=== PATIENT | male | born 1955 | race Caucasian/White ===

== ENCOUNTER → 2021-01-12 13:44 | Outpatient (BNVA) | payer MEDICARE, OTHER, SELFPAY | PROVIDERS: PCP Nurse Practitioner Family; Visit Provider Surgery | DX: Z20.822 Contact with and (suspected) exposure to COVID-19 (principal) | CPT/HCPCS: 87635 ==

== ENCOUNTER → 2021-01-17 11:04 | Outpatient (BNVA) | payer MEDICARE, OTHER, SELFPAY | PROVIDERS: PCP Nurse Practitioner Family; Visit Provider Surgery | DX: Z20.822 Contact with and (suspected) exposure to COVID-19 (principal) | CPT/HCPCS: 87635 ==

== ENCOUNTER 2021-01-19 07:13 | Day surgery (SDC) | payer MEDICARE, OTHER, SELFPAY ==
[2021-01-18 11:48] VITALS: BMI 32.8
[2021-01-19] VITALS (16 sets, daily range): BP systolic 145–200; BP diastolic 84–120; PULSE 62–90; RESP 11–20; TEMP 36.4–36.7; O2SAT 93–99
[2021-01-19] MEDS: sodium chloride 0.9% 1,000 ML 30 ML IV (07:40)
--- NOTE | 2021-01-19 07:56 | NM_ITS ---
WS: [id number] NUCLEAR MEDICINE SENTINEL LYMPH NODE IMAGING HISTORY: Lymph node evaluation for melanoma along the RIGHT axillary line. COMPARISON: None available. TECHNIQUE: The patient was injected with 1.1 mCi of Technetium 99 ultra filtered sulfur colloid. Inje ction is intradermal along the RIGHT axillary line. Four aliquots are used. At approximately 45 minutes the sentinel lymph node is identified towards the RIGHT axilla. [place] lymph node is localized and the skin is marked with a permanent marker. Lymph node is localized in th e anterior and sagittal plane. NM/NM sentinel [place] inject [id number] IMPRESSION: [place] lymph node identified towards the RIGHT axilla.
--- NOTE | 2021-01-19 08:42 | PC.NURSE ---
1.1 mCi Tc99m Filtered Sulfur Colloid Injected Right Auxillary/back lesion at [address] Velasquez. Imaging to follow.
--- NOTE | 2021-01-19 10:15 | ANES.PREANE2 ---
Pre-Anesthetic Assessment Pre-Anesthetic Assessment: Height/Weight: Height 1.8 m Weight 106.594 kg Temp Pulse Resp BP Pulse Ox 98.1 F 90 18 168/87 97 01/19/21 07:30 01/19/21 07:30 01/19/21 07:30 01/19/21 07:30 01/19/21 07:30 Preop Diagnosis: Melanoma Proposed Procedure: Operation Date: 01/19/21 12:00 Proposed Procedures p wide local incision right mid back and left mid back [id number](Not Applicable) - Lucas García MD s Sentinal Lymph Node Biopsy(Not Applicable) - Lucas García MD Familial anesthetic complications: None Was Beta Flako taken within 24 hours: N/A Was Clonidine taken within 24 hours: N/A Last intake: Intake Last Liquid Date 01/08/21 Last Liquid Time 22:00 Last Solid Date 01/18/21 Last Solid Time 20:00 Social: Social History: Alcohol Packs per day: 10-12 beers daily Exam: Pre-Anes Outpt Exam: alert, oriented x 3, clear to auscultation bilaterally and regular rate & rhythm Airway: Cervical ROM: WNL MP: 4 Dentition: Other (missing) Additional comments: full burgos Anesthetic Plan: ASA status: 1 Anesthesia: General and MAC Risk of > 500 ml blood loss (7ml/kg in children): No PFSH Anesthesia PFSH: Medical History Malignant melanoma No pertinent past medical history Surgical History History of arthroscopic knee surgery History of colonoscopy with polypectomy History of tonsillectomy Social History History of recent travel: No Data Anesthesia Cardiac Studies: No Data to Display
--- NOTE | 2021-01-19 12:10 | W.PM.OPSUD ---
Surgery/Procedure H&P Update DATE OF PROCEDURE: January 19, 2021 DATE H&P PERFORMED: 01/09/21 H&P UPDATE INFORMATION: I have reviewed H&P completed within last 30 days, I have examined patient prior to procedure and No changes to prior documentation PREOP DIAGNOSIS: Melanoma PLANNED PROCEDURE: Operation Date: 01/19/21 12:00 Proposed Procedures p wide local incision right mid back and left mid back [id number](Not Applicable) - Lucas García MD s Sentinal Lymph Node Biopsy(Not Applicable) - Lucas García MD
[2021-01-19] MEDS: lidocaine 1% INJ 20 mL INJECTION (13:12)
[2021-01-19] MEDS: isosulfan blue 10 mg/mL SDV 5mL SUBCUT (13:16)
--- NOTE | 2021-01-19 14:27 | PM.OP ---
Operative Report Date of procedure: January 19, 2021 Pre-op Diagnosis: 1. Malignant melanoma superficial spreading Breslow depth 1.8 mm right mid back with positive deep and lateral margin 2. Malignant melanoma superficial spreading Breslow depth 0.5 mm left mid back Post-op diagnosis: same Procedure Done: 1. Wide local excision of malignant melanoma site left mid back 2. Intermediate closure of wound measuring 7 x 3 cm 3. Wide local excision of malignant melanoma right mid back 4. Intermediate closure of wound measuring 10 x 4 cm 5. Injection of 2.5 cc of 1% Lymphazurin 6. Right axillary sentinel lymph node biopsy Specimens removed/disposition: 1. Malignant melanoma site left mid back, short stitch, superior, long stitch lateral 2. Malignant melanoma site right mid back, short stitch superior, long stitch lateral 3. Right axillary sentinel lymph node biopsy Surgeon: Lucas García Anesthesia: General Condition: stable Disposition: PACU Procedure: The patient was taken to the operating room and intubated under general anesthesia after IV antibiotic had been administered and placed in a prone position. The back was prepped and draped in a sterile manner. A transverse elliptical incision was made using a 15 blade around the surgical site on the left mid back with 1.5 cm margin since B[place]low depth of the malignant melanoma was 0.5 mm. The subcutaneous tissue was divided using electrocautery down to the muscular fascia and the specimen was excised completely. A short stitch was placed superiorly and a long stitch was placed laterally using a 2-0 silk suture. The wound was irrigated with saline, hemostasis ensured with electrocautery. The wound measured 7 x 3 cm. Using electrocautery superior and inferior subcutaneous flaps were raised and the subcutaneous tissues were approximated using running 3-0 Vicryl suture in layers and the skin was closed using running subcuticular 4-0 Monocryl suture and Dermabond. 0.5% Marcaine was infiltrated around the incision. A transverse elliptical incision was made using a 15 blade around the surgical site on the right mid back with 2 cm margin since B[place]low depth of the malignant melanoma was 1.8 mm. The subcutaneous tissue was divided using electrocautery down to the muscular fascia and the specimen was excised completely. A short stitch was placed superiorly and a long stitch was placed laterally using a 2-0 silk suture. The wound was irrigated with saline, hemostasis ensured with electrocautery. The wound measured 10 x 4 cm. Using electrocautery superior and inferior subcutaneous flaps were raised and the subcutaneous tissues were approximated using running 3-0 Vicryl suture in layers and the skin was closed using running subcuticular 4-0 Monocryl suture and Dermabond. 0.5% Marcaine was infiltrated around the incision. The patient was then placed in a supine position. A technetium sulfur colloid had been injected previously by the radiologist in the periareolar area. 2.5 mL of 1% Lymphazurin was injected near the site of the previously excised melanoma. The area was massaged for 5 minutes and a 2 cm incision was made in the left axilla at the edge of the hairline. The subcutaneous tissue and clavipectoral fascia was divided with electrocautery and gentle dissection revealed lymphatics with stained lymph nodes. Using electrocautery the lymph nodes which were identified with the gamma probe were dissected free. Examination of the axilla did not reveal any other radioactive lymph nodes. The clavipectoral and subcutaneous tissue was approximated using running 3-0 Vicryl suture and skin was closed using running subcuticular 4-0 Monocryl suture and Dermabond. 0.5% Marcaine was infiltrated around the incision The patient was extubated and transferred to recovery room in stable condition.
[2021-01-19] MEDS: HYDROmorphone 1 mg/mL INJ 1 mL 0.5 MG IVP (14:30)
[2021-01-19] MEDS: HYDROcodone-acetaminophen 5-325 mg Tablet 1 TAB PO (15:49)
== END 2021-01-19 17:40 | disposition home or self-care (01) ==
PROVIDERS: PCP Nurse Practitioner Family; Visit Provider Surgery
PROC: (CPT 11606; principal; 2021-01-19 12:00)
PROC: (CPT 11606; 2021-01-19 12:00)
DX: C43.59 Malignant melanoma of other part of trunk (principal)
CPT/HCPCS: 11606; 12035; 38525; 38792; 88304; 88305; A9541; J0330; J0690; J1100; J1170; J2250; J2370; J2405; J3010; J3490; J7030; Q9968

== ENCOUNTER 2021-03-06 11:57 | Outpatient (CLI) | payer MEDICARE, OTHER, SELFPAY ==
--- NOTE | 2021-03-07 09:24 | ONC CON_ITS ---
Dr. John New Patient Note Patient: Krishna Guevara Unit #: [id number]: 1955 Dicatated By: Sandy John M.D.Date of Visit: Mar 06, 2021 Onc MED New Patient/Consult Referring Physician: Edgar Melo A.N.P. History of Present Illness: Mr. Krishna Guevara, is a 65-year-old gentleman with history of melanoma involving right upper back, initially underwent laser treatment by PMD in first week of November 2020, at that time biopsy was also obtained which came back melanoma and patient was referred to Dr. Ledesma, dermatology as per patient on January 02, 2021 he underwent left upper back shave biopsy which showed patchy lichenoid infiltrated with associated pigment incontinence. And skin biopsy left mid back, shave biopsy shows malignant melanoma, superficial spreading type, invasive into and focally expanding the papillary dermis, arising in association with an intradermal melanocytic nevus depth of invasion 0.5 mm no surface ulceration, T1 a, NX MX, subsequently patient was referred to surgery Dr. García for evaluation of right upper back lesion and his impression was skip lesion as there was a nodule next to the previously shaved right back melanoma lesion, patient underwent excisional biopsy and sentinel lymph node biopsy on January 19, 2021 which showed nodule of necrotic tumor and melanophages in the deep dermis and subcutis, 3.6 mm in greatest dimension. Discontinuous with prior biopsy site, favor necrotic microsatellite. No additional residual melanoma identified. Final pathology stage pT2b, pN1c, (satellite lesion), 7 benign lymph nodes from right axilla sentinel were negative for metastatic disease. Patient denies any history of skin cancer, denies any family history of melanoma denies any headaches blurred vision double he denies any jaundice denies any new bony pains denies any weight loss, denies any fever or chills, Past Medical History: Mr. Guevara's medical history consists of onychomycosis. Past Surgical History: Mr. Guevara's surgical/procedural history consists of arthroscopic knee surgery, colonoscopy, and tonsillectomy. Medications: Terbinafine HCl 1 Tablet (of 250 mg) Oral daily Allergies: No Known Allergies. Social History: Mr. Guevara is single. Mr. Guevara has never smoked. He has no history of drinking. Family History: There is no documented family history. Review Of Symptoms: Review of Systems is not available for this patient. Vital Signs: Performed on Mar 06, 2021 15:06: 0, 0, 0.00 (LOW), sq.m, 98 %, 89 /min, 18 /min, 157/95 mm(hg) (HIGH), 98.6 F, and 244 lbs (HIGH). Performance Status: 0 - Fully active, able to carry on all predisease activities without restrictions. (ECOG) Physical Examination: ENMT - No mouth sores, no thrush, no jaundice, Respiratory - Lungs are clear to auscultation, Cardiovascular - Regular rate and rhythm of heart, Abdomen - Soft, bowel sounds present, Extremities - No visible edema, well-healed surgical scar in bilateral mid back and right axilla from recent surgery for melanoma. Lab/Imaging: Most recent lab results are not available for this patient. Impression: pT2b, N1c, MX, cutaneous melanoma involving right mid back status post excisional biopsy with clear surgical margin and sentinel lymph node/right axillary lymphadenectomy done on January 19, 2021 As per pathology, it was a nodule of necrotic tumor with melanophages in the deep dermis and subcutis, 3.6 mm in greatest dimension, discontinuous with prior biopsy site which confirmed melanoma too, favor necrotic microsatellite, right axillary sentinel lymph nodes were removed and all 7 benign lymph nodes, negative for malignancy. Final pathology was T2b, maximum tumor thickness 1.8 mm, ulceration present, microsatellite present, necrotic, tumor infiltrating lymphocytes present, no lymphovascular invasion seen. Left mid back shows maximum tumor thickness 0.5 mm, no ulceration clear surgical margins T1 a NX Plan: Discussed with patient regarding his disease status and treatment options, clinically, patient has stage IIIb, T2b, N1C, (satellite lesion), MX status post sentinel lymph node biopsy which shows no involvement, based on NCCN guidelines, patient would be a candidate for adjuvant therapy with immunotherapy with checkpoint inhibitor or dabrafenib based regimen if his tumor shows BRAF mutation, discussed with pathology and molecular profiling including BRAF mutation testing has been requested, we will review that and make further recommendations based on molecular profile. Patient return to clinic in 3 weeks for further discussion regarding adjuvant therapy. Signed By: Sandy John M.D. <<Signature on File>>
== END 2021-03-06 11:58 | disposition home or self-care (01) ==
PROVIDERS: PCP Nurse Practitioner Family; Visit Provider Internal Medicine Hematology & Oncology
DX: C43.59 Malignant melanoma of other part of trunk (principal)
CPT/HCPCS: 81210; 99205

== ENCOUNTER 2021-06-08 08:59 | Outpatient (CLI) | payer MEDICARE, OTHER, SELFPAY ==
--- NOTE | 2021-06-08 11:57 | ONC FU_ITS ---
Dr. John follow up note Patient: Krishna Guevara Unit #: [id number]: 1955 Dicatated By: Sandy John M.D.Date of Visit:Jun 08, 2021 Onc Med Follow-up/Prog Note History of Present Illness: Mr. Krishna Guevara, is a 65-year-old gentleman with history of melanoma involving right upper back, initially underwent laser treatment by PMD in first week of November 2020, at that time biopsy was also obtained which came back melanoma and patient was referred to Dr. Ledesma, dermatology as per patient on January 02, 2021 he underwent left upper back shave biopsy which showed patchy lichenoid infiltrated with associated pigment incontinence. And skin biopsy left mid back, shave biopsy shows malignant melanoma, superficial spreading type, invasive into and focally expanding the papillary dermis, arising in association with an intradermal melanocytic nevus depth of invasion 0.5 mm no surface ulceration, T1 a, NX MX, subsequently patient was referred to surgery Dr. García for evaluation of right upper back lesion and his impression was skip lesion as there was a nodule next to the previously shaved right back melanoma lesion, patient underwent excisional biopsy and sentinel lymph node biopsy on January 19, 2021 which showed nodule of necrotic tumor and melanophages in the deep dermis and subcutis, 3.6 mm in greatest dimension. Discontinuous with prior biopsy site, favor necrotic microsatellite. No additional residual melanoma identified. Final pathology stage pT2b, pN1c, (satellite lesion), 7 benign lymph nodes from right axilla sentinel were negative for metastatic disease. Patient denies any history of skin cancer, denies any family history of melanoma denies any headaches blurred vision double he denies any jaundice denies any new bony pains denies any weight loss, denies any fever or chills, Came for follow-up, denies any specific complaints, no fever chills, no nausea or vomiting, no diarrhea constipation, no melena or hematochezia, no abdominal pain, no jaundice, no new bony pains. Patient was supposed to come back 3 weeks after his visit on March 06, 2021 with BRAF testing but he was rescheduled because of BRAF report was not available till May 23, 2021 which showed BRAF V600 mutation was not detected. Medications: There is no information available for Current Medications - Patient. Allergies: No Known Allergies. Review of Systems: Review of Systems is not available for this patient. Vital Signs: Performed on Jun 08, 2021 09:20 Weight - 246 lbs (HIGH) BSA - 0.00 sq.m BMI - 0.00 Temperature - 97.0 F (LOW) Pulse - 99 /min Respiration - 18 /min BP - 163/90 mm(hg) (HIGH) O2 Sat - 97 % Pain - 0 Fatigue - 0 Performance Status: 0 - Fully active, able to carry on all predisease activities without restrictions. (ECOG) Physical Examination: ENMT - No mouth sores, no thrush, no jaundice, Respiratory - Lungs are clear to auscultation, Cardiovascular - Regular rate and rhythm of heart, Abdomen - Soft, bowel sounds present, Extremities - No visible edema. Lab/Imaging: Most recent lab results are not available for this patient. Impression: pT2b, N1c, MX, cutaneous melanoma involving right mid back status post excisional biopsy with clear surgical margin and sentinel lymph node/right axillary lymphadenectomy done on January 19, 2021 As per pathology, it was a nodule of necrotic tumor with melanophages in the deep dermis and subcutis, 3.6 mm in greatest dimension, discontinuous with prior biopsy site which confirmed melanoma too, favor necrotic microsatellite, right axillary sentinel lymph nodes were removed and all 7 benign lymph nodes, negative for malignancy. Final pathology was T2b, maximum tumor thickness 1.8 mm, ulceration present, microsatellite present, necrotic, tumor infiltrating lymphocytes present, no lymphovascular invasion seen. BRAF V600 mutation not detected reported on May 23, 2021 Left mid back shows maximum tumor thickness 0.5 mm, no ulceration clear surgical margins T1 a NX Plan: Discussed with patient regarding his disease status and treatment options, again. As patient had a concern about side effects/toxicity related to immunotherapy, including but not limited to pneumonitis, colitis, endocrinopathy, hepatic toxicity and requirement of Port-A-Cath placement for intravenous immunotherapy, patient inquired if pills can be used so BRAF testing was ordered to confirm whether patient has BRAF positive melanoma, as mentioned above he would consider oral adjuvant therapy. Moreover NCCN guidelines were reviewed again which shows patient with macroscopic satellite and biopsy specimen from primary lesion was recommended to consider sentinel lymph node biopsy with wide excision which was done and patient sentinel lymph node biopsy came back negative and dose patient were offered clinical trial or observation. Patient declined clinical trial, as he does not want to be guinea pig and would not consider experimental 'stuff'. Role of immunotherapy as adjuvant therapy in his case, based on keynote 716 trial with Keytruda 200 mg every 3 weeks for 1 year was also discussed but again related side effect with immunotherapy including pneumonitis, endocrinopathy, colitis which can be life-threatening, hepatitis, dermatological toxicity were mentioned, patient wants guarantee that there will be an side effect with immunotherapy then only he would consider. Patient was encouraged to consider clinical trial and was offered referral to tertiary care center like melanoma clinic at [facility] but due to inconvenience patient would not consider referral rather request if we can call there and discuss. So call was placed to medical oncologist in melanoma clinic at [facility] and message was left. Case was discussed with Dr. Meadows, pathologist to review patient's pathology from January 19, 2021 to reconfirm whether he has microsatellite lesion as there was no evidence of lymphovascular or perineural invasion in the primary lesion, as patient may have second melanoma primary, that will downstage., As per Dr. Meadows, he did discuss his case with pathologist in [facility] Dr. Sena and others and they concur with diagnosis of microsatellite lesion. As mentioned earlier as per NCCN guidelines clinical trial or observation is appropriate in patient with microscopic satellites and biopsy specimen from the primary lesion with negative sentinel lymph node biopsy, whereas clinical trial keynote 716 confirmed about 30% reduction in risk of disease recurrence with Keytruda when given 200 mg every 3 weeks for 1 year, and as mentioned patient is reluctant to consider immunotherapy due to related side effects and he is BRAF mutation testing shows no evidence of BRAF mutation, in that case oral BRAF inhibitors cannot be considered. Patient will think about immunotherapy and for clinical trial, or observation so he will return to clinic in 2 weeks with CBC and CMP in the meantime we will discuss his case with medical oncologist in melanoma clinic at [place] regarding clinical trial or any other nonimmunotherapy options Signed By: Sandy John M.D. <<Signature on File>>
== END 2021-06-08 09:00 | disposition home or self-care (01) ==
LOC: ONCMED 09:04
PROVIDERS: PCP Nurse Practitioner Family; Visit Provider Internal Medicine Hematology & Oncology
DX: C43.59 Malignant melanoma of other part of trunk (principal)
CPT/HCPCS: 99214

== ENCOUNTER 2021-06-27 08:16 | Outpatient (CLI) | payer MEDICARE, OTHER, SELFPAY ==
[2021-06-27 10:45] LABS: Basophils % 0.7 %; Eosinophils # 0.1 10^3/uL (0.0-0.8); Eosinophils % 1.3 %; Hematocrit 46.1 % (42.0-52.0); Hemoglobin 15.7 g/dL (11.7-16.6); Lymphocytes # 1.3 10^3/uL (0.8-4.8); Lymphocytes % 23.5 %; Mean Corpuscular HGB Conc 34.1 g/dL (30.0-36.0); Mean Corpuscular Hemoglobin 32.2 pg (28.0-34.0); Mean Corpuscular Volume 94.7 fl (80-94); Mean Platelet Volume 10.3 fL (7.4-10.4); Monocytes # 0.4 10^3/uL (0.2-0.9); Monocytes % 7.3 %; Neutrophils # 3.66 10^3/uL (1.8-7.7); Neutrophils % 66.8 %; Nucleated Red Blood Cells % 0 %; Platelet Count 165 10^3/cmm (130-400); Red Blood Count 4.87 10^6/uL (4.1-5.3); Red Cell Distribution Width 11.9 % (12.1-15.1); White Blood Count 5.5 10^3/uL (4.0-10.0)
[2021-06-27 11:00] LABS: Alanine Aminotransferase 35 U/L (0-41); Albumin Level 4.7 g/dL (3.5-5.2); Alkaline Phosphatase 107 IU/L (40-130); Anion Gap 18.3 (5-19); Aspartate Amino Transferase 31 U/L (0-40); Blood Urea Nitrogen 5 mg/dL (8-23); Carbon Dioxide 25 mmol/L (22-29); Chloride 100 mmol/L (98-107); Globulin 3.1 g/dL (1.3-4.6); Glomerular Filtration Rate 113.2 mL/min (90-130); Glucose 87 mg/dL (65-115); Osmolality Calculated 285 mOsm/kg (285-295); Potassium 4.3 mmol/L (3.5-5.1); Sodium 139 mmol/L (136-145); Total Bilirubin 0.5 mg/dL (0.15-1.2); Total Protein 7.8 g/dL (6.6-8.7)
--- NOTE | 2021-06-27 16:29 | ONC FU_ITS ---
Dr. John follow up note Patient: Krishna Guevara Unit #: [id number]: 1955 Dicatated By: Sandy John M.D.Date of Visit:Jun 27, 2021 Onc Med Follow-up/Prog Note History of Present Illness: Mr. Krishna Guevara, is a 65-year-old gentleman with history of melanoma involving right upper back, initially underwent laser treatment by PMD in first week of November 2020, at that time biopsy was also obtained which came back melanoma and patient was referred to Dr. Ledesma, dermatology as per patient on January 02, 2021 he underwent left upper back shave biopsy which showed patchy lichenoid infiltrated with associated pigment incontinence. And skin biopsy left mid back, shave biopsy shows malignant melanoma, superficial spreading type, invasive into and focally expanding the papillary dermis, arising in association with an intradermal melanocytic nevus depth of invasion 0.5 mm no surface ulceration, T1 a, NX MX, subsequently patient was referred to surgery Dr. García for evaluation of right upper back lesion and his impression was skip lesion as there was a nodule next to the previously shaved right back melanoma lesion, patient underwent excisional biopsy and sentinel lymph node biopsy on January 19, 2021 which showed nodule of necrotic tumor and melanophages in the deep dermis and subcutis, 3.6 mm in greatest dimension. Discontinuous with prior biopsy site, favor necrotic microsatellite. No additional residual melanoma identified. Final pathology stage pT2b, pN1c, (satellite lesion), 7 benign lymph nodes from right axilla sentinel were negative for metastatic disease. Patient denies any history of skin cancer, denies any family history of melanoma denies any headaches blurred vision double he denies any jaundice denies any new bony pains denies any weight loss, denies any fever or chills, Interim ; Treatment options including clinical trial, immunotherapy or observation were discussed, patient declined clinical trials and immunotherapy but may consider oral therapy so BRAF testing was ordered Patient was supposed to come back 3 weeks after his visit on March 06, 2021 with BRAF testing but he was rescheduled because of BRAF report was not available till May 23, 2021 which showed BRAF V600 mutation was not detected. Came for follow-up, denies any specific complaints, no fever chills, no nausea or vomiting, no diarrhea constipation, no new bony pains, no headaches blurred vision or double vision., Appetite is good Medications: There is no information available for Current Medications - Patient. Allergies: No Known Allergies. Review of Systems: Review of Systems is not available for this patient. Vital Signs: Performed on Jun 27, 2021 16:08 Weight - 245 lbs (LOW) BSA - 0.00 sq.m BMI - 0.00 Temperature - 97.4 F (LOW) Pulse - 86 /min BP - 163/81 mm(hg) (HIGH) O2 Sat - 97 % Pain - 0 Fatigue - 0 Performance Status: 0 - Fully active, able to carry on all predisease activities without restrictions. (ECOG) Physical Examination: ENMT - No mouth sores, no thrush, no jaundice, Respiratory - Lungs are clear to auscultation, Cardiovascular - Regular rate and rhythm of heart, Abdomen - Soft, bowel sounds present, Extremities - No visible edema. Lab/Imaging: Most recent lab results are not available for this patient. Impression: pT2b, N1c, MX, cutaneous melanoma involving right mid back status post excisional biopsy with clear surgical margin and sentinel lymph node/right axillary lymphadenectomy done on January 19, 2021 As per pathology, it was a nodule of necrotic tumor with melanophages in the deep dermis and subcutis, 3.6 mm in greatest dimension, discontinuous with prior biopsy site which confirmed melanoma too, favor necrotic microsatellite, right axillary sentinel lymph nodes were removed and all 7 benign lymph nodes, negative for malignancy. Final pathology was T2b, maximum tumor thickness 1.8 mm, ulceration present, microsatellite present, necrotic, tumor infiltrating lymphocytes present, no lymphovascular invasion seen. BRAF V600 mutation not detected reported on May 23, 2021 Left mid back shows maximum tumor thickness 0.5 mm, no ulceration clear surgical margins T1 a NX Plan: Discussed with patient regarding discussion with Dr. Ybarra, melanoma explored at [facility] in [place], and again patient was offered second opinion at [facility] regarding clinical trials as, as per NCCN guidelines patient with negative sentinel/additional lymph nodes but with satellite lesion should be offered clinical trials or immunotherapy or observation. Patient was offered immunotherapy but knowing the risk versus benefits, he declined and opted for observation but was anxious about risk of recurrence. He wanted to discuss about fenbendazole, known as dewormer, as per patient Mr. Abraham Wagner, a cancer patient with no hope, took it and he was 'cured'. Moreover, patient said his sister did some research regarding alternative therapies for cancer, patient was advised that we only offer medically proven, NCCN guideline based treatment options. Considering, his clinical stage, patient has risk for recurrence, so we will consider molecular testing for circulating tumor cell with signatera. And also consider follow-up MRI scan of the head and CT PET scan, if it shows no evidence of disease, then will continue with observation on the other hand if there is any evidence of disease or any circulating tumor cell, we will again discuss about role of systemic therapy. Patient will return to clinic in 3 weeks with follow-up MRI scan of the head and CT PET scan and with molecular testing for circulating tumor cells report. Signed By: Sandy John M.D. <<Signature on File>>
== END 2021-06-27 08:17 | disposition home or self-care (01) ==
PROVIDERS: PCP Nurse Practitioner Family; Visit Provider Internal Medicine Hematology & Oncology
DX: C43.59 Malignant melanoma of other part of trunk (principal)
CPT/HCPCS: 36415; 80053; 85025; 99214

== ENCOUNTER 2021-07-17 11:20 | Outpatient (CLI) | payer MEDICARE, OTHER, SELFPAY ==
--- NOTE | 2021-07-17 11:40 | MR_ITS ---
WS: [id number] MRI BRAIN WITHOUT CONTRAST HISTORY: MELANOMA COMPARISON: None available. TECHNIQUE: Diffusion imaging, multiplanar T1, T2 and FLAIR imaging obtained. No evidence for acute infarct or hemorrhage. Patrick-white matter differentiation is normal. There are n o restricted areas of diffusion. Very mild bilateral symmetric atrophy. No acute hemorrhage or chronic hemorrhage. No prior infarct or significant microvascular ischemic disease. Ventricles and extra-axial spaces are normal. No inferior displacement of cerebellar tonsils. The sella turcica and pituitary gland are unremarkabl e. Dural venous sinuses and coe[place]'al[place] of [place] demonstrate no abnormality on this unenhanced studies. Paranasal sinuses: Clear. Mastoid air cells: Normal. Calvarium and scalp: Intact. MR/MR head wo con* [id number] IMPRESSION: 1. No acute diffusion weighted abnormalities. 2. No cerebral edema or prior infarcts. 3. Very mild cerebral atrophy is symmetric.
== END 2021-07-17 11:21 | disposition home or self-care (01) ==
LOC: RAD 11:24
PROVIDERS: PCP Nurse Practitioner Family; Visit Provider Internal Medicine Hematology & Oncology
DX: C43.59 Malignant melanoma of other part of trunk (principal); G31.9 Degenerative disease of nervous system, unspecified
CPT/HCPCS: 70551

== ENCOUNTER 2021-09-12 12:51 | Outpatient (CLI) | payer MEDICARE, OTHER, SELFPAY ==
[2021-09-12 13:32] LABS: Basophils # 0.1 10^3/uL (0.0-0.1); Basophils % 0.8 %; Eosinophils # 0.1 10^3/uL (0.0-0.8); Hematocrit 43.5 % (42.0-52.0); Hemoglobin 15.3 g/dL (11.7-16.6); Lymphocytes # 1.3 10^3/uL (0.8-4.8); Lymphocytes % 20.4 %; Mean Corpuscular HGB Conc 35.2 g/dL (30.0-36.0); Mean Corpuscular Volume 93.8 fl (80-94); Mean Platelet Volume 9.5 fL (7.4-10.4); Monocytes # 0.6 10^3/uL (0.2-0.9); Monocytes % 10.3 %; Neutrophils # 4.16 10^3/uL (1.8-7.7); Neutrophils % 67.2 %; Nucleated Red Blood Cells % 0 %; Platelet Count 168 10^3/cmm (130-400); Red Blood Count 4.64 10^6/uL (4.1-5.3); Red Cell Distribution Width 12.2 % (12.1-15.1); White Blood Count 6.2 10^3/uL (4.0-10.0)
[2021-09-12 13:52] LABS: Alanine Aminotransferase 34 U/L (0-41); Albumin Level 4.4 g/dL (3.5-5.2); Alkaline Phosphatase 92 IU/L (40-130); Anion Gap 12.7 (5-19); Aspartate Amino Transferase 28 U/L (0-40); Blood Urea Nitrogen 7 mg/dL (8-23); Calcium 9.7 mg/dL (8.5-10.5); Carbon Dioxide 28 mmol/L (22-29); Chloride 99 mmol/L (98-107); Globulin 3.4 g/dL (1.3-4.6); Glucose 102 mg/dL (65-115); Osmolality Calculated 278 mOsm/kg (285-295); Potassium 4.7 mmol/L (3.5-5.1); Sodium 135 mmol/L (136-145); Total Bilirubin 0.5 mg/dL (0.15-1.2); Total Protein 7.8 g/dL (6.6-8.7)
--- NOTE | 2021-09-18 17:04 | ONC FU_ITS ---
Dr. John follow up note Patient: Krishna Guevara Unit #: [id number]: 1955 Dicatated By: Sandy John M.D.Date of Visit:Sep 12, 2021 Onc Med Follow-up/Prog Note History of Present Illness: Mr. Krishna Guevara, is a 65-year-old gentleman with history of melanoma involving right upper back, initially underwent laser treatment by PMD in first week of November 2020, at that time biopsy was also obtained which came back melanoma and patient was referred to Dr. Ledesma, dermatology as per patient on January 02, 2021 he underwent left upper back shave biopsy which showed patchy lichenoid infiltrated with associated pigment incontinence. And skin biopsy left mid back, shave biopsy shows malignant melanoma, superficial spreading type, invasive into and focally expanding the papillary dermis, arising in association with an intradermal melanocytic nevus depth of invasion 0.5 mm no surface ulceration, T1 a, NX MX, subsequently patient was referred to surgery Dr. García for evaluation of right upper back lesion and his impression was skip lesion as there was a nodule next to the previously shaved right back melanoma lesion, patient underwent excisional biopsy and sentinel lymph node biopsy on January 19, 2021 which showed nodule of necrotic tumor and melanophages in the deep dermis and subcutis, 3.6 mm in greatest dimension. Discontinuous with prior biopsy site, favor necrotic microsatellite. No additional residual melanoma identified. Final pathology stage pT2b, pN1c, (satellite lesion), 7 benign lymph nodes from right axilla sentinel were negative for metastatic disease. Patient denies any history of skin cancer, denies any family history of melanoma denies any headaches blurred vision double he denies any jaundice denies any new bony pains denies any weight loss, denies any fever or chills, Interim ; Treatment options including clinical trial, immunotherapy or observation were discussed, patient declined clinical trials and immunotherapy but may consider oral therapy so BRAF testing was ordered Patient was supposed to come back 3 weeks after his visit on March 06, 2021 with BRAF testing but he was rescheduled because of BRAF report was not available till May 23, 2021 which showed BRAF V600 mutation was not detected. Case was discussed with Dr. Ybarra, melanoma expert at [facility], in [place] for possible referral but patient declined so it was decided to proceed with follow-up work-up with MRI scan of the brain which was done on July 17, 2021 which showed no acute abnormality. Molecular testing to detect minimal residual disease with Signatera testing was done on June 27, 2021, which came back negative. CT PET scan done on July 01, 2021 showed no evidence of active malignancy Came for follow-up, denies any specific complaints, no fever chills, no nausea or vomiting, no diarrhea constipation, no melena or hematochezia, no hemoptysis or hematemesis, as per patient he is following with dermatology on regular basis. Denies any weight loss denies any new bony pain denies any headaches blurred vision or double vision Medications: There is no information available for Current Medications - Patient. Allergies: No Known Allergies. Review of Systems: Review of Systems is not available for this patient. Vital Signs: Performed on Sep 12, 2021 15:27 Weight - 245.0 lbs BSA - 0.00 sq.m BMI - 0.00 Temperature - 98.5 F Pulse - 96 /min Respiration - 18 /min BP - 162/86 mm(hg) (HIGH) O2 Sat - 95 % (LOW) Pain - 0 Fatigue - 0 Performance Status: 0 - Fully active, able to carry on all predisease activities without restrictions. (ECOG) Physical Examination: ENMT - No mouth sores, no thrush, no jaundice, no cervical lymphadenopathy, Respiratory - Lungs are clear to auscultation, Cardiovascular - Regular rate and rhythm of heart, Abdomen - Soft, bowel sounds present, Extremities - No visible edema. Lab/Imaging: Most recent lab results are not available for this patient. Impression: pT2b, N1c, MX, cutaneous melanoma involving right mid back status post excisional biopsy with clear surgical margin and sentinel lymph node/right axillary lymphadenectomy done on January 19, 2021 As per pathology, it was a nodule of necrotic tumor with melanophages in the deep dermis and subcutis, 3.6 mm in greatest dimension, discontinuous with prior biopsy site which confirmed melanoma too, favor necrotic microsatellite, right axillary sentinel lymph nodes were removed and all 7 benign lymph nodes, negative for malignancy. Final pathology was T2b, maximum tumor thickness 1.8 mm, ulceration present, microsatellite present, necrotic, tumor infiltrating lymphocytes present, no lymphovascular invasion seen. BRAF V600 mutation not detected reported on May 23, 2021 Left mid back shows maximum tumor thickness 0.5 mm, no ulceration clear surgical margins T1 a NX Patient was offered clinical trial or adjuvant immunotherapy but patient opted for observation follow-up testing include CT PET scan which was done on July 01, 2021 showed no evidence of active malignancy, MRI scan of the head which was done on July 17, 2021 showed no acute findings suggestive of metastatic disease. Molecular testing for minimal residual disease done with Signatera testing on June 27, 2021, came back negative Plan: Discussed with patient regarding his labs white blood count 6.2 hemoglobin 15.3 hematocrit 43.5 platelets 168,000 CMP within normal limits and his follow-up testing include CT PET scan which was done on July 01, 2021 showed no evidence of active malignancy, MRI scan of the head which was done on July 17, 2021 showed no acute findings suggestive of metastatic disease. Molecular testing for minimal residual disease done with Signatera testing on June 27, 2021, came back negative Clinically, patient doing well with no new signs symptom suggestive of recurrence of disease his lab work-up is within normal range, recently done PET scan/MRI scan of the head and molecular testing for minimal residual disease came back negative for recurrence. At this point, we will continue to monitor and patient will return to clinic in 3 months with CBC CMP and molecular testing with Signatera test for minimal residual disease Signed By: Sandy John M.D. <<Signature on File>>
== END 2021-09-12 12:52 | disposition home or self-care (01) ==
PROVIDERS: PCP Nurse Practitioner Family; Visit Provider Internal Medicine Hematology & Oncology
DX: C43.59 Malignant melanoma of other part of trunk (principal)
CPT/HCPCS: 36415; 80053; 85025; 99214

== ENCOUNTER 2021-12-13 12:37 | Oncology outpatient (recurring) (ONCR) | payer MEDICARE, OTHER, SELFPAY ==
[2021-12-06 14:14] LABS: Basophils # 0.1 10^3/uL (0.0-0.1); Basophils % 0.7 %; Eosinophils # 0.1 10^3/uL (0.0-0.8); Eosinophils % 0.9 %; Hematocrit 42.7 % (42.0-52.0); Hemoglobin 15.1 g/dL (11.7-16.6); Lymphocytes # 1.6 10^3/uL (0.8-4.8); Lymphocytes % 20.9 %; Mean Corpuscular HGB Conc 35.4 g/dL (30.0-36.0); Mean Corpuscular Hemoglobin 32.5 pg (28.0-34.0); Monocytes # 0.8 10^3/uL (0.2-0.9); Monocytes % 10.8 %; Neutrophils # 4.97 10^3/uL (1.8-7.7); Neutrophils % 66.3 %; Nucleated Red Blood Cells % 0 %; Platelet Count 157 10^3/cmm (130-400); Red Blood Count 4.64 10^6/uL (4.1-5.3); Red Cell Distribution Width 11.6 % (12.1-15.1); White Blood Count 7.5 10^3/uL (4.0-10.0)
[2021-12-06 14:33] LABS: Alanine Aminotransferase 29 U/L (0-41); Albumin Level 4.5 g/dL (3.5-5.2); Alkaline Phosphatase 96 IU/L (40-130); Anion Gap 15.5 (5-19); Aspartate Amino Transferase 26 U/L (0-40); Blood Urea Nitrogen 10 mg/dL (8-23); Calcium 9.3 mg/dL (8.5-10.5); Carbon Dioxide 27 mmol/L (22-29); Chloride 101 mmol/L (98-107); Globulin 3.1 g/dL (1.3-4.6); Glomerular Filtration Rate 84.4 mL/min (90-130); Glucose 106 mg/dL (65-115); Osmolality Calculated 287 mOsm/kg (285-295); Potassium 4.5 mmol/L (3.5-5.1); Sodium 139 mmol/L (136-145); Total Bilirubin 0.5 mg/dL (0.15-1.2); Total Protein 7.6 g/dL (6.6-8.7)
== END 2021-12-31 23:59 | disposition home or self-care (01) ==
PROVIDERS: PCP Nurse Practitioner Family; Referring Provider Nurse Practitioner Family; Visit Provider Internal Medicine Hematology & Oncology
DX: C43.59 Malignant melanoma of other part of trunk (principal)
CPT/HCPCS: 36415; 80053; 85025; 99214; G0463

== ENCOUNTER 2022-06-15 10:03 | Oncology outpatient (recurring) (ONCR) | payer MEDICARE, OTHER, SELFPAY ==
[2022-06-15 10:54] LABS: Basophils % 0.7 %; Eosinophils # 0.1 10^3/uL (0.0-0.8); Eosinophils % 0.9 %; Hemoglobin 15.7 g/dL (11.7-16.6); Lymphocytes # 1.4 10^3/uL (0.8-4.8); Lymphocytes % 23.6 %; Mean Corpuscular HGB Conc 34.9 g/dL (30.0-36.0); Mean Corpuscular Hemoglobin 32.7 pg (28.0-34.0); Mean Corpuscular Volume 93.8 fl (80-94); Mean Platelet Volume 9.5 fL (7.4-10.4); Monocytes # 0.6 10^3/uL (0.2-0.9); Monocytes % 10.9 %; Neutrophils # 3.69 10^3/uL (1.8-7.7); Neutrophils % 63.6 %; Nucleated Red Blood Cells % 0 %; Platelet Count 169 10^3/cmm (130-400); Red Cell Distribution Width 11.9 % (12.1-15.1); White Blood Count 5.8 10^3/uL (4.0-10.0)
[2022-06-15 11:10] LABS: Alanine Aminotransferase 35 U/L (0-41); Albumin Level 4.5 g/dL (3.5-5.2); Alkaline Phosphatase 110 U/L (40-130); Anion Gap 12.4 (5-19); Aspartate Amino Transferase 24 U/L (0-40); Blood Urea Nitrogen 8 mg/dL (8-23); Calcium 9.3 mg/dL (8.5-10.5); Carbon Dioxide 29 mmol/L (22-29); Chloride 97 mmol/L (98-107); Globulin 3.2 g/dL (1.3-4.6); Glomerular Filtration Rate 112.8 mL/min (90-130); Glucose 111 mg/dL (65-115); Osmolality Calculated 275 mOsm/kg (285-295); Potassium 5.4 mmol/L (3.5-5.1); Sodium 133 mmol/L (136-145); Total Bilirubin 0.5 mg/dL (0.15-1.2); Total Protein 7.7 g/dL (6.6-8.7)
[2023-02-14 13:29] LABS: Miscellaneous Test See Scanned Lab Rpt
== END 2022-07-03 23:59 | disposition home or self-care (01) ==
PROVIDERS: PCP Nurse Practitioner Family; Visit Provider Internal Medicine Hematology & Oncology
DX: Z08 Encounter for follow-up examination after completed treatment for malignant neoplasm (principal); Z85.820 Personal history of malignant melanoma of skin; E87.5 Hyperkalemia
CPT/HCPCS: 36415; 80053; 85025; 99214

== ENCOUNTER 2022-07-31 10:36 | Oncology outpatient (recurring) (ONCR) | payer MEDICARE, OTHER, SELFPAY | END 2022-07-31 23:59 | disposition home or self-care (01) | LOC: ONCMED 10:36 | PROVIDERS: PCP Nurse Practitioner Family; Visit Provider Internal Medicine Hematology & Oncology | DX: Z08 Encounter for follow-up examination after completed treatment for malignant neoplasm (principal); Z85.820 Personal history of malignant melanoma of skin; E87.5 Hyperkalemia | CPT/HCPCS: 36415 ==

== ENCOUNTER 2022-08-22 11:14 | Outpatient (CLI) | payer MEDICARE, OTHER, SELFPAY ==
[2022-08-22 11:52] LABS: Blood Urea Nitrogen 9 mg/dL (8-23); Glomerular Filtration Rate 84.4 mL/min (90-130)
--- NOTE | 2022-08-22 12:00 | CTR_ITS ---
PROCEDURE INFORMATION: Exam: CT Chest With Contrast; Diagnostic Exam date and time: 08/22/2022 11:56 AM Age: 66 years old Clinical indication: Initial staging oncological exam. Tumor/polyp/nodule location - melanoma. Patient HX: Dry cough x a few months ago pain on RT side midline after coughing; Additional info: Follow up, to be completed just prior to next onc visit TECHNIQUE: Imaging protocol: Diagnostic computed tomography of the chest with contrast. Radiation optimization: All CT scans at this facility use at least one of these dose optimization techniques: automated exposure control; mA and/or kV adjustment per patient size (includes targeted exams where dose is matched to clinical indication); or iterative reconstruction. Contrast material: OMNI 350; Contrast volume: 95 ml; Contrast route: INTRAVENOUS (IV); REPORTING DATA: Count of CT and Cardiac NM exams in prior 12 months: This patient has received 0 known CTs and 0 known cardiac nuclear medicine studies in the 12 months prior to the current study. COMPARISON: No relevant prior studies available. RADIATION DOSE METRICS: Total DLP (mGy-cm): 1317.98 FINDINGS: Thyroid: The partially imaged bilateral thyroid lobes are unremarkable. Lungs: Unremarkable. No consolidation. No masses. Pleural spaces: No pneumothorax. No pleural effusion. Heart: No cardiomegaly. No pericardial effusion. Coronary arteries: Proximal LAD coronary artery calcifications. Lymph nodes: No enlarged lymph nodes. Vasculature: Mild aortic arch, branch, and descending thoracic aortic atherosclerotic calcification without ectasia. Bones/joints: Diffuse osteopenia. No destructive bony process identified. Healed lateral right 9th rib fracture. Healed anterolateral left 10th and 11th rib fractures. Soft tissues: Unremarkable. PROCEDURE INFORMATION: Exam: CT Abdomen And Pelvis With Contrast Exam date and time: 08/22/2022 11:56 AM Age: 66 years old Clinical indication: Initial staging oncological exam. Tumor/polyp/nodule location - melanoma. Patient HX: Dry cough x a few months ago pain on RT side midline after coughing; Additional info: Follow up, to be completed just prior to next onc visit TECHNIQUE: Imaging protocol: Computed tomography of the abdomen and pelvis with contrast. Radiation optimization: All CT scans at this facility use at least one of these dose optimization techniques: automated exposure control; mA and/or kV adjustment per patient size (includes targeted exams where dose is matched to clinical indication); or iterative reconstruction. Contrast material: OMNI 350; Contrast volume: 95 ml; Contrast route: INTRAVENOUS (IV); REPORTING DATA: Count of CT and Cardiac NM exams in prior 12 months: This patient has received 0 known CTs and 0 known cardiac nuclear medicine studies in the 12 months prior to the current study. COMPARISON: No relevant prior studies available. RADIATION DOSE METRICS: Total DLP (mGy-cm): 1317.98 FINDINGS: Liver: Mild diffuse hypoattenuation of the liver is present consistent with hepatic steatosis. Gallbladder and bile ducts: Partially contracted gallbladder. Pancreas: Normal. No ductal dilation. Spleen: Normal. No splenomegaly. Adrenal glands: Normal. No mass. Kidneys and ureters: See Intraperitoneal space finding. Stomach and bowel: Unremarkable. No obstruction. No mucosal thickening. Appendix: No evidence of appendicitis. Intraperitoneal space: Nonspecific edema of the central mesentery. This can be seen in portal hypertension, various abdominal inflammatory processes, mesenteric venous thrombosis, renal failure, neoplasia and sclerosing mesenteritis, among other entities. Vasculature: Moderate abdominal aortic atherosclerotic calcification without aneurysm. The iliac arteries show mild bilateral atherosclerotic calcifications without evidence of aneurysm. The main portal vein measures 14.5 mm. Calcified phleboliths are present in the lower pelvis bilaterally. Lymph nodes: No enlarged lymph nodes. Urinary bladder: Nonspecific mild superior urinary bladder wall thickening. Reproductive: Unremarkable as visualized. Bones/joints: Diffuse osteopenia. Bilateral L5 spondylolysis. Anterior bridging bilateral sacroiliac joint marginal osteophytes. Left ischial tuberosity, left intertrochanteric femur probable small benign bone islands. Small lumbar spine vertebral body marginal osteophytes. Soft tissues: Unremarkable. CT/CT chest abdpel w/*[id number] IMPRESSION: 1. No evidence of thoracic metastatic disease. 2. Coronary atherosclerosis. 3. Please see the abdomen/pelvis CT report of the same date for additional findings. IMPRESSION: 1. No specific evidence of abdominal/pelvic metastatic disease. 2. Mild fatty infiltration of the liver. 3. Nonspecific mild superior urinary bladder wall thickening. Cystitis not excluded. Clinical correlation with urinalysis is recommended. 4. Please see the CT chest report of the same date for additional findings.
[2022-08-22] MEDS: iohexol 350 mg/mL 500 mL Btl (per mL) IV (12:02)
== END 2022-08-22 11:15 | disposition home or self-care (01) ==
LOC: RAD 11:22
PROVIDERS: PCP Nurse Practitioner Family; Visit Provider Internal Medicine Hematology & Oncology
DX: C43.9 Malignant melanoma of skin, unspecified (principal); I25.10 Atherosclerotic heart disease of native coronary artery without angina pectoris; K76.0 Fatty (change of) liver, not elsewhere classified
CPT/HCPCS: 71260; 74177; 82565; 84520; Q9967

== ENCOUNTER 2022-09-11 09:45 | Oncology outpatient (recurring) (ONCR) | payer MEDICARE, OTHER, SELFPAY ==
[2022-09-11 10:36] LABS: Basophils % 0.8 %; Eosinophils # 0.1 10^3/uL (0.0-0.8); Eosinophils % 1.7 %; Hematocrit 40.6 % (42.0-52.0); Hemoglobin 14.5 g/dL (11.7-16.6); Lymphocytes # 1.3 10^3/uL (0.8-4.8); Lymphocytes % 25.5 %; Mean Corpuscular HGB Conc 35.7 g/dL (30.0-36.0); Mean Corpuscular Hemoglobin 33.3 pg (28.0-34.0); Mean Corpuscular Volume 93.1 fl (80-94); Mean Platelet Volume 9.2 fL (7.4-10.4); Monocytes # 0.5 10^3/uL (0.2-0.9); Monocytes % 9.5 %; Neutrophils # 3.27 10^3/uL (1.8-7.7); Neutrophils % 62.1 %; Nucleated Red Blood Cells % 0 %; Platelet Count 167 10^3/cmm (130-400); Red Blood Count 4.36 10^6/uL (4.1-5.3); Red Cell Distribution Width 11.7 % (12.1-15.1); White Blood Count 5.3 10^3/uL (4.0-10.0)
[2022-09-11 11:04] LABS: Alanine Aminotransferase 20 U/L (0-41); Albumin Level 4.4 g/dL (3.5-5.2); Alkaline Phosphatase 106 U/L (40-130); Anion Gap 11.9 (5-19); Aspartate Amino Transferase 21 U/L (0-40); Blood Urea Nitrogen 7 mg/dL (8-23); Calcium 8.8 mg/dL (8.5-10.5); Carbon Dioxide 29 mmol/L (22-29); Chloride 94 mmol/L (98-107); Globulin 2.9 g/dL (1.3-4.6); Glomerular Filtration Rate 134.8 mL/min (90-130); Glucose 93 mg/dL (65-115); Osmolality Calculated 268 mOsm/kg (285-295); Potassium 4.9 mmol/L (3.5-5.1); Sodium 130 mmol/L (136-145); Total Bilirubin 0.5 mg/dL (0.15-1.2); Total Protein 7.3 g/dL (6.6-8.7)
== END 2022-09-30 23:59 | disposition home or self-care (01) ==
PROVIDERS: PCP Nurse Practitioner Family; Visit Provider Internal Medicine Hematology & Oncology
DX: Z08 Encounter for follow-up examination after completed treatment for malignant neoplasm (principal); Z85.820 Personal history of malignant melanoma of skin; K76.0 Fatty (change of) liver, not elsewhere classified; N32.89 Other specified disorders of bladder; I25.10 Atherosclerotic heart disease of native coronary artery without angina pectoris; Z90.89 Acquired absence of other organs
CPT/HCPCS: 80053; 85025; 99214

== ENCOUNTER 2023-02-18 10:29 | Oncology outpatient (recurring) (ONCR) | payer MEDICARE, OTHER, SELFPAY ==
--- OUTSIDE RECORDS SUMMARY | 2023-02-18 10:30 | XMS_ITS | Patient Health Record ---
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 Comprehensive Metabolic Pane l [id number] Reviewed date:02/22/2022 11:18:57 PM Interpretation: Performing Lab: Notes/Report: Diagnosis Description: Encounter for general adult medical examination without abnormal findings Glucose Serum 103 71-110 MG/DL BUN 8 7-21 MG/DL Creat .77 .57-1.17 MG/DL E-diroyo-f-benzoquinone imine (NAPQI) is a metabolite of acetaminophen, NAPQI concentrations of apparoximately 10 mg/L correlation to toxic levels of acetaminophen demonstrates a greater than or equil to 10% change in results. NAPQI concentrations greater than this may lead to falsely depressed results for patient samples. Use of this assay is not recommended for patients undergoing treatment with phenindione, due to the potential for falsely depressed results. GFR 98.6 Calculation per formed from GFR calculator provided by the National Kid[employer]. Glomerular Filtration rate(GRF) is the best overall index of kidney function. Normal GFR varies according to age,sex, body size, and declines with age. The National Kidney Foundation recommends using the CKD-EPI Creatinine Equation(2009) to estimate GFR. BUN/Creat Ratio 10.4 12.0-20.0 % Total Protein 7.2 5.8-8.0 G/DL Albumin 4.4 3.2-4.8 G/DL Globulin 2.8 2.3-3.5 G/DL Alb/Glob 1.6 0.8-2.2 Calcium 9.6 8.7-10.4 MG/DL Sodium 132 136-145 MMOL/L Potassium 4.4 3.5-5.1 MMOL/L Chloride 94 98-107 MMOL/L CO2 28.6 20.0-31.0 MMOL/L Anion Gap 14 5-15 Alk Phos 101 46-116 Bili Total .8 .3-1.2 MG/DL Use of this ass ay is not recommended for patients undergoing treatment with eltrombopag due to the potential for falsely elevated results. AST/SGOT 35 15-37 UNIT/L ALT/SGPT 38 12-78 UNIT/L Osmo Serum,Calculated 273 280-300 MOSM/KG CBC w\ Auto Diff [id number] Reviewed date:02/22/2022 11:19:15 PM Interpretation: Performing Lab: Notes/Report: Diagnosis Description: Encounter for general adult medical examination without abnormal findings Instr WBC 6.0 WBC 6.0 4.8-10.8 X10'3 RBC 4.53 4.70-6.10 X10'6 Hgb 14.9 14.0-18.0 G/DL Hct 42.3 42.0-52.0 % MCV 93.4 80.0-94.0 FL MCH 32.9 27.0-31.0 PG MCHC 35.2 33.0-37.0 G/DL Platelet 157 150-400 X10'3 RDW-SD 42.1 35.0-49.0 FL RDW-CV 12.1 7.4-14.5 % MPV 10.4 7.4-10.4 FL Neutro Auto% 68.8 42.0-75.0 % Lymph Auto% 19.9 21.0-51.0 % Jerome Auto% 9.3 1.7-9.3 % Eos Auto% 1.0 .0-6.0 Baso Auto% 0.7 0.0-1.0 Imm Gran% .3 .0-.4 % Neutro Abs 4.12 .80-7.70 Lymph Abs 1.19 .10-4.10 Jerome Abs .56 .20-1.00 Eos Abs .06 .00-.40 Baso Abs .04 .00-.10 Imm Gran Abs .02 .00-.10 NRBC# .00 .00-.20 NRBC% .00 .00-.20 /100 int act WBC's Thyroxine (T4) 07280 Reviewed date:02/22/2022 11:19:25 PM Interpretation: Performing Lab: Notes/Report: Diagnosis Description: Encounter for screening for other suspected endocrine disorder ThyroxinT4 5.0 4.5-12.1 MCG/DL Lipid Panel Reflex DLDL 8006 1, 52203 Reviewed date:02/22/2022 11:19:40 PM Interpretation: Performing Lab: Notes/Report: Diagnosis Description: Mixed hyperlipidemia Trig 87 Classification Guidelines:Triglycerides Adults: >20yrs Desirable <150 Borderline High 150-199 High 200-499 Very high >=500 Children: Male 0-4 yr 22-99 5-9 yr 30-101 10-14 yr 32-125 15-19 yr 37-148 Children: Female 0-4 yr 34-112 5-9 yr 32-105 10-14 yr 37-131 15-19 yr 39-132 Chol 256 <=200 MG/DL HDL 48 30-72 MG/DL Reference Ranges:HDL Male: 5-9y 38-75 10-14y 37-74 15-19y 30-63 >=20y 40-59 Female: 5-9y 36-73 10-14y 37-70 15-19y 35-74 >=20y 40-59 CH/HDL 5.3 0.0-4.9 LDL 191 0-130 MG/DL LDL result is i naccurate , if Trig is >400 mg/dl. See DLDL result. Hemoglobin A1c 46106 Reviewed date:02/22/2022 11:19:54 PM Interpretation: Performing Lab: Notes/Report: Diagnosis Description: Hyperglycemia, unspecified Hgb A1c 5.2 3.8-6.4 % Interpretation Of Hgb A1c: 4.5-6.2 % nondiabetics. >7.0 % diabetics. EAG 103 Estimated [place] ge Glucose(EAG). Thyroid Stimulating Hormone (TSH) 78051 Reviewed date:02/22/2022 11:20:07 PM Interpretation: Performing Lab: Notes/Report: Diagnosis Description: Encounter for screening for other suspected endocrine disorder TSH 2.838 .358-3.740 MlU/ML [facility] Metabolic Pane l 84428 Reviewed date:07/14/2022 10:48:38 AM Interpretation: Performing Lab: Notes/Report: Diagnosis Description: Hypo-osmolality and hyponatremia Glucose Serum 101 71-110 MG/DL BUN 10 7-21 MG/DL Creat .78 .57-1.17 MG/DL X-wlckti-y-benzoquinone imine (NAPQI) is a metabolite of acetaminophen, NAPQI concentrations of apparoximately 10 mg/L correlation to toxic levels of acetaminophen demonstrates a greater than or equil to 10% change in results. NAPQI concentrations greater than this may lead to falsely depressed results for patient samples. Use of this assay is not recommended for patients undergoing treatment with phenindione, due to the potential for falsely depressed results. GFR 98.0 Calculation per formed from GFR calculator provided by the National Kid[employer] Foundation. Glomerular Filtration rate(GRF) is the best overall index of kidney function. Normal GFR varies according to age,sex, body size, and declines with age. The National Kidney Foundation recommends using the CKD-EPI Creatinine Equation(2009) to estimate GFR. BUN/Creat Ratio 12.8 12.0-20.0 % Total Protein 7.4 5.8-8.0 G/DL Albumin 4.3 3.2-4.8 G/DL Globulin 3.1 2.3-3.5 G/DL Alb/Glob 1.4 0.8-2.2 Calcium 9.5 8.7-10.4 MG/DL Sodium 130 136-145 MMOL/L Potassium 4.6 3.5-5.1 MMOL/L Chloride 95 98-107 MMOL/L CO2 28.4 20.0-31.0 MMOL/L Anion Gap 11 5-15 Alk Phos 101 46-116 Bili Total .6 .3-1.2 MG/DL Use of this ass ay is not recommended for patients undergoing treatment with eltrombopag due to the potential for falsely elevated results. AST/SGOT 23 15-37 UNIT/L ALT/SGPT 33 12-78 UNIT/L Osmo Serum,Calculated 269 280-300 MOSM/KG CBC w\ Auto Diff [id number] Reviewed date:07/14/2022 10:48:17 AM Interpretation: Performing Lab: Notes/Report: Diagnosis Description: Other iron deficiency anemias WBC 5.8 4.5-11.0 X10'3 RBC 4.66 4.50-5.90 X10'6 Hgb 15.1 13.5-17.5 G/DL Hct 43.2 41.0-53.0 % MCV 92.7 80.0-100.0 FL MCH 32.4 27.0-31.0 PG MCHC 35.0 31.0-37.0 G/DL Platelet 191 150-400 X10'3 RDW-SD 39.7 35.0-49.0 FL RDW-CV 11.6 12.2-15.6 % MPV 10.6 9.2-12.0 FL Neutro Auto% 63.7 42.0-75.0 % Lymph Auto% 25.0 21.0-51.0 % Jerome Auto% 8.4 1.7-9.3 % Eos Auto% 1.7 .0-6.0 Baso Auto% 1.0 0.0-1.0 Imm Gran% .2 .0-.4 % Neutro Abs 3.71 .80-7.70 Absolute Neutrophil Count 3710 Lymph Abs 1.46 .10-4.10 Jerome Abs .49 .20-1.00 Eos Abs .10 .00-.40 Baso Abs .06 .00-.10 Imm Gran Abs .01 .00-.10 NRBC# .00 .00-.20 NRBC% .00 .00-.20 /100 int act WBC's Thyroid Stimulating Hormone (TSH) 41900 Reviewed date:06/18/2022 12:57:29 PM Interpretation: Performing Lab: Notes/Report: Diagnosis Description: Encounter for screening for other suspected endocrine disorder TSH 3.730 .358-3.740 MlU/ML Lipid Panel Reflex DLDL 8006 3, 42970 Reviewed date:06/18/2022 12:57:12 PM Interpretation: Performing Lab: Notes/Report: Diagnosis Description: Mixed hyperlipidemia Trig 95 Classification Guidelines:Triglycerides Adults: >20yrs Desirable <150 Borderline High 150-199 High 200-499 Very high >=500 Children: Male 0-4 yr 22-99 5-9 yr 30-101 10-14 yr 32-125 15-19 yr 37-148 Children: Female 0-4 yr 34-112 5-9 yr 32-105 10-14 yr 37-131 15-19 yr 39-132 Chol 245 <=200 MG/DL HDL 50 30-72 MG/DL Reference Ranges:HDL Male: 5-9y 38-75 10-14y 37-74 15-19y 30-63 >=20y 40-59 Female: 5-9y 36-73 10-14y 37-70 15-19y 35-74 >=20y 40-59 CH/HDL 4.9 0.0-4.9 LDL 176 0-130 MG/DL LDL result is i naccurate , if Trig is >400 mg/dl. See DLDL result. Thyroxine (T4) 99587 Reviewed date:06/18/2022 12:56:39 PM Interpretation: Performing Lab: Notes/Report: Diagnosis Description: Encounter for screening for other suspected endocrine disorder ThyroxinT4 5.9 4.5-12.1 MCG/DL CBC w\ Auto Diff 71339 Reviewed date:06/18/2022 12:56:19 PM Interpretation: Performing Lab: Notes/Report: Diagnosis Description: Essential (primary) hypertension WBC 5.3 4.5-11.0 X10'3 RBC 4.58 4.50-5.90 X10'6 Hgb 15.5 13.5-17.5 G/DL Hct 43.2 41.0-53.0 % MCV 94.3 80.0-100.0 FL MCH 33.8 27.0-31.0 PG MCHC 35.9 31.0-37.0 G/DL Platelet 170 150-400 X10'3 RDW-SD 40.9 35.0-49.0 FL RDW-CV 11.9 12.2-15.6 % MPV 10.1 9.2-12.0 FL Neutro Auto% 59.8 42.0-75.0 % Lymph Auto% 28.7 21.0-51.0 % Jerome Auto% 9.6 1.7-9.3 % Eos Auto% 1.1 .0-6.0 Baso Auto% 0.6 0.0-1.0 Imm Gran% .2 .0-.4 % Neutro Abs 3.19 .80-7.70 Lymph Abs 1.53 .10-4.10 Jerome Abs .51 .20-1.00 Eos Abs .06 .00-.40 Baso Abs .03 .00-.10 Imm Gran Abs .01 .00-.10 NRBC# .00 .00-.20 NRBC% .00 .00-.20 /100 int act WBC's Comprehensive Metabolic Pane l 01018 Reviewed date:06/18/2022 12:55:58 PM Interpretation: Performing Lab: Notes/Report: Diagnosis Description: Essential (primary) hypertension Glucose Serum 100 71-110 MG/DL BUN 11 7-21 MG/DL Creat .84 .57-1.17 MG/DL W-dhvsca-g-benzoquinone imine (NAPQI) is a metabolite of acetaminophen, NAPQI concentrations of apparoximately 10 mg/L correlation to toxic levels of acetaminophen demonstrates a greater than or equil to 10% change in results. NAPQI concentrations greater than this may lead to falsely depressed results for patient samples. Use of this assay is not recommended for patients undergoing treatment with phenindione, due to the potential for falsely depressed results. GFR 95.9 Calculation per formed from GFR calculator provided by the National Kidney Foundation. Glomerular Filtration rate(GRF) is the best overall index of kidney function. Normal GFR varies according to age,sex, body size, and declines with age. The National Kidney Foundation recommends using the CKD-EPI Creatinine Equation(2009) to estimate GFR. BUN/Creat Ratio 13.1 12.0-20.0 % Total Protein 7.4 5.8-8.0 G/DL Albumin 4.5 3.2-4.8 G/DL Globulin 2.9 2.3-3.5 G/DL Alb/Glob 1.6 0.8-2.2 Calcium 9.5 8.7-10.4 MG/DL Sodium 130 136-145 MMOL/L Potassium 4.7 3.5-5.1 MMOL/L Chloride 95 98-107 MMOL/L CO2 29.7 20.0-31.0 MMOL/L Anion Gap 10 5-15 Alk Phos 109 46-116 Bili Total .7 .3-1.2 MG/DL Use of this ass ay is not recommended for patients undergoing treatment with eltrombopag due to the potential for falsely elevated results. AST/SGOT 26 15-37 UNIT/L ALT/SGPT 39 12-78 UNIT/L Osmo Serum,Calculated 269 280-300 MOSM/KG REASON FOR REFERRAL No Information MEDICATIONS Medication SIG (Take, Route, Fr equency, Duration) Notes Start Date End Date Status Lisinopril 10 MG 1 tablet Orally Once a day for 90 days Active SOCIAL HISTORY Tobacco Use: Social History Observation Description Date Details (start date - stop date) Never Smoker NA - NA Sex Assigned At : Social History Observation Description Sex Assigned At Unknown Tobacco Use/Smoking Question Answer Notes Are you a nonsmoker Alcohol Screen (Audit-C) Question Answer Notes Did you have a drink contain ing alcohol in the past year? Yes How often did you have a dri nk containing alcohol in the past year? 4 or more times a week (4 points) How many drinks did you have on a typical day when you were drinking in the past year? 10 or more drinks (4 points) How often did you have 6 or more drinks on one occasion in the past year? Daily or almost daily (4 points) Points 12 Interpretation Positive PHQ-9 Question Answer Notes Little interest or pleasure in doing things Not at all Feeling down, depressed, or hopeless Not at all Trouble falling or staying asleep, or sleeping t oo much Not at all Feeling tired or having little energy Not at all Poor appetite or overeating Not at all Feeling bad about yourself, or that you are a failure, or have let yourself or your family down Not at all Trouble concentrating on thi ngs, such as reading the newspaper or watching television Not at all Moving or speaking so slowly that other people could have noticed. Or the opposite ? being so fidgety or restless that you have been moving around a lot more than usual Not at all Thoughts that you would be b miracle off , or of hurting yourself in some way Not at all Total Score 0 PROBLEMS Problem Type ICD Code Onset Dates Problem Status W/U Status Risk SNOMED Code Notes Problem Mixed hyperlipidemia (E78.2) Active confirmed 963409662 Problem Hyperglycemia (R73.9) Active confirmed 28923987 Problem Other iron deficiency anemia (D50.8) Active confirmed 35854563 Problem Moderate mixed hyperlipidemia not requiring statin therapy (E78.2) Active confirmed 549846817 Problem Hyponatremia (E87.1) Active confirmed 45369932 Problem Encounter for wellness examination (Z00.00) Active confirmed 322234712 Problem Prostate cancer screening (Z12.5) Active confirmed 897336289 Problem History of melanoma (Z85.820) Active confirmed 275315660 Problem Thyroid disorder screening (Z13.29) Active confirmed 864630771 Problem Primary hypertension (I10) Active confirmed 82717753 VITAL SIGNS Heart Rate 85 /min 03/15/2022 Temperature 97.5 degrees Fahrenheit 03/15/2022 Height-cm 180.34 cm 03/15/2022 Oximetry 96 % 03/15/2022 Blood pressure diastolic 74 mm Hg 03/15/2022 Weight-kg 111.13 kg 03/15/2022 Height 71 in 03/15/2022 Blood pressure systolic 133 mm Hg 03/15/2022 Weight 245 lbs 03/15/2022 BMI 34.17 kg/m2 03/15/2022 Encounters Encounter Location Date Provider Diagnosis [place] [address] [place] [address] 06/19/2022 [facility] Primary hypertension I10 [facility] [address] [place] [address] 07/20/[address] [facility] [address] [place] [address] 09/27/2022 [facility] Primary hypertension I10 [facility] [address] [facility] [place] [address] 01/03/[address] [facility] [address] [place] [address] 02/22/2022 [facility] History of melanoma Z85.820 ; Primary hypertension I10 ; Moderate mixed hyperlipidemia not requiring statin therapy E78.2 ; Hyperglycemia R73.9 ; Thyroid disorder screening Z13.29 ; Prostate cancer screening Z12.5 and Encounter for wellness examination Z00.00 [facility] [address] [place] [address] 03/15/2022 [facility] Primary hypertension I10 and Mixed hyperlipidemia E78.2 [facility] [address] [place] [address] 06/15/2022 [facility] Primary hypertension I10 ; Mixed hyperlipidemia E78.2 ; Thyroid disorder screening Z13.29 ; History of melanoma Z85.820 and Hyponatremia E87.[address] [address] 07/12/2022 [facility] Hyponatremia E87.1 ; History of melanoma Z85.820 and Other iron deficiency anemia D50.8 ASSESSMENTS Encounter Date Diagnosis Assessment Notes Treatment Notes Treatment Clinical Notes 02/22/2022 Primary hypertension (ICD-10 - I10) lisinopril 10 mg monitor b/p 03/15/2022 Mixed hyperlipidemia (ICD-10 - E78.2) resume fish oil 03/15/2022 Primary hypertension (ICD-10 - I10) lisinopril 06/15/2022 Mixed hyperlipidemia (ICD-10 - E78.2) 02/22/2022 History of melanoma (ICD-10 - Z85.820) continue with oncology and pet scans as planned 06/15/2022 Primary hypertension (ICD-10 - I10) 06/19/2022 Primary hypertension (ICD-10 - I10) 07/12/2022 Hyponatremia (ICD-10 - E87.1) 07/12/2022 History of melanoma (ICD-10 - Z85.820) 09/27/2022 Primary hypertension (ICD-10 - I10) 07/12/2022 Other iron deficienc y anemia (ICD-10 - D50.8) 06/15/2022 Thyroid disorder screening (ICD-10 - Z13.29) 02/22/2022 Moderate mixed hyperlipidemia not requiring statin therapy (ICD-10 - E78.2) 02/22/2022 Hyperglycemia (ICD-1 0 - R73.9) ha1c 06/15/2022 History of melanoma (ICD-10 - Z85.820) 02/22/2022 Thyroid disorder screening (ICD-10 - Z13.29) 06/15/2022 Hyponatremia (ICD-10 - E87.1) 02/22/2022 Prostate cancer screening (ICD-10 - Z12.5) 02/22/2022 Encounter for wellness examination (ICD-10 - Z00.00) 02/22/2022 Other Venipuncture performed by Bita Carey RN on [facility] with 23guage needle, blood obtained first attempt, Pt tolerated well, bleeding controlled with light dressing. Lab sent to [facility] via good [employer] vendor. Questions asked and answered; discharged to home. 03/15/2022 Other Questions asked and answered; discharged to home. 06/15/2022 Other Venipuncture performed by MITCHELL España to [facility], 23 guage needle, blood obtained first attempt, Pt tolerated well, bleeding controlled with light dressing. Lab sent to [facility] via good [employer] vendor. 07/12/2022 Other Venipuncture performed by MITCHELL España to [facility], 21G, blood obtained first attempt, Pt tolerated well, bleeding controlled with light dressing. Lab sent to [facility] via good [employer] vendor. PLAN OF TREATMENT No Information Insurance Providers Payer Name Payer Address Payer Phone Subscriber Number Group Number Insured Name Patient Relationship to Insured Coverage Start Date Coverage End Date [place] [address] [employer] DEONNA VENTURA [id number] [id number] Krishna Guevara Self - patient is the insured [facility] [address] [address] [place] [address] [id number] Krishna Guevara Self - patient is the insured MEDICAL (GENERAL) HISTORY Medical History History ICD Code melanoma Surgical History Surgery Date(Month/Year) moles removed 2020
== END 2023-03-02 23:59 | disposition home or self-care (01) ==
LOC: ONCMED 10:29
PROVIDERS: PCP Nurse Practitioner Family; Visit Provider Internal Medicine Hematology & Oncology
DX: C43.9 Malignant melanoma of skin, unspecified (principal)
CPT/HCPCS: 36415

== ENCOUNTER 2023-03-13 09:45 | Oncology outpatient (recurring) (ONCR) | payer MEDICARE, OTHER, SELFPAY ==
[2023-03-13 10:16] VITALS: BP 173/92; PULSE 88; RESP 16; TEMP 36.7; O2SAT 95
[2023-03-13 10:28] LABS: Basophils % 0.6 %; Eosinophils # 0.1 10^3/uL (0.0-0.8); Eosinophils % 0.9 %; Hematocrit 42.6 % (37-53); Lymphocytes # 1.3 10^3/uL (0.8-4.8); Lymphocytes % 24.6 %; Mean Corpuscular Volume 91.4 fl (82-101); Mean Platelet Volume 9.2 fL (7.4-10.4); Monocytes # 0.5 10^3/uL (0.2-0.9); Monocytes % 8.6 %; Neutrophils % 65.1 %; Nucleated Red Blood Cells % 0 %; Platelet Count 160 10^3/cmm (157-399); Red Blood Count 4.66 10^6/uL (3.85-5.65); Red Cell Distribution Width 11.8 % (12.1-15.1); White Blood Count 5.37 10^3/uL (3.29-11.43)
[2023-03-13 10:48] LABS: Alanine Aminotransferase 18 U/L (0-41); Albumin Level 4.2 g/dL (3.5-5.2); Alkaline Phosphatase 90 U/L (40-130); Anion Gap 11.7 (5-19); Aspartate Amino Transferase 17 U/L (0-40); Blood Urea Nitrogen 8 mg/dL (8-23); Carbon Dioxide 29 mmol/L (22-29); Chloride 98 mmol/L (98-107); Globulin 3.1 g/dL (1.3-4.6); Glomerular Filtration Rate 84.2 mL/min (90-130); Glucose 99 mg/dL (65-115); Osmolality Calculated 276 mOsm/kg (285-295); Potassium 4.7 mmol/L (3.5-5.1); Sodium 134 mmol/L (136-145); Total Bilirubin 0.8 mg/dL (0.15-1.2); Total Protein 7.3 g/dL (6.6-8.7)
== END 2023-04-02 23:59 | disposition home or self-care (01) ==
LOC: ONCMED 09:45
PROVIDERS: Internal Medicine Medical Oncology; PCP Nurse Practitioner Family; Visit Provider Internal Medicine Hematology & Oncology
DX: C43.9 Malignant melanoma of skin, unspecified (principal)
CPT/HCPCS: 17000; 36415; 80053; 85025; 99213

== ENCOUNTER 2023-04-04 11:38 | Outpatient (CLI) | payer MEDICARE, OTHER, SELFPAY ==
--- NOTE | 2023-04-04 12:53 | XRR_ITS ---
PROCEDURE INFORMATION: Exam: XR Left Knee Exam date and time: 04/04/2023 12:57 PM Age: 67 years old Clinical indication: Pain; Knee; Bilateral TECHNIQUE: Imaging protocol: Radiologic exam of the left knee. 2image(s) are provided. Views: 1 or 2 views. COMPARISON: No relevant prior studies available of the left knee. Rt knee same day. FINDINGS: Bones/joints: Osseous alignment is maintained.No displaced fracture or dislocation is appreciated. There is some chronic multi compartmental degeneration with spurring and narrowing including at the patellofemoral and medial compartments predominantly. There is some chondrocalcinosis demonstrated with lateral compartmental predominance. Soft tissues: No radiopaque foreign body or subcutaneous emphysema is appreciated. There is some slight prominence of the soft tissues overall. Vasculature: There is some atherosclerotic vascular calcifications present. XR/XR knee LT 1-2V 26766 IMPRESSION: There is some chronic advanced multi compartmental degeneration present throughout the knee.No fracture or dislocation is appreciated.
--- NOTE | 2023-04-04 12:53 | XRR_ITS ---
PROCEDURE INFORMATION: Exam: XR Right Knee Exam date and time: 04/04/2023 12:57 PM Age: 67 years old Clinical indication: Pain; Knee; Bilateral; Prior surgery; Surgery date: 6+ months; Surgery type: Unkown.No history of trauma or recent surgery is provided. TECHNIQUE: Imaging protocol: Radiologic exam of the right knee. 2image(s) are provided. Views: 1 or 2 views. COMPARISON: No relevant prior studies available of the right knee. Lt knee same day. FINDINGS: Bones/joints: Osseous alignment is maintained.No displaced fracture or dislocation is appreciated. Posterior fabella is demonstrated. There is a small amount of joint fluid present. There is some chronic appearing multi compartmental degeneration demonstrated including patellofemoral and medial predominance. Soft tissues: No radiopaque foreign body or subcutaneous emphysema is appreciated. There is some slight prominence of the soft tissues overall. Vasculature: There appear to be some atherosclerotic vascular calcifications present. XR/XR knee RT 1-2V 81132 IMPRESSION: Osseous alignment is maintained with some chronic multi compartmental degeneration present.No fracture or dislocation is appreciated.
== END 2023-04-04 11:39 | disposition home or self-care (01) ==
PROVIDERS: PCP Nurse Practitioner Family; Visit Provider Nurse Practitioner Family
DX: M17.0 Bilateral primary osteoarthritis of knee (principal)
CPT/HCPCS: 73560

== ENCOUNTER → 2023-05-20 10:45 | Outpatient (BNVA) | payer MEDICARE, OTHER, SELFPAY | PROVIDERS: PCP Nurse Practitioner Family; Visit Provider Specialist | DX: M25.561 Pain in right knee (principal); M25.562 Pain in left knee; M17.0 Bilateral primary osteoarthritis of knee | CPT/HCPCS: 20610; 73560; 73565; 80503; 87070; 87075; 87205; 89050; 99204; J1100; J2795; J3301 ==

== ENCOUNTER 2023-06-19 13:32 | Oncology outpatient (recurring) (ONCR) | payer MEDICARE, OTHER, SELFPAY ==
[2023-06-19 14:57] LABS: Basophils % 0.7 %; Eosinophils % 0.5 %; Hematocrit 42.6 % (37-53); Lymphocytes # 1.3 10^3/uL (0.8-4.8); Lymphocytes % 20.9 %; Mean Corpuscular HGB Conc 34.5 g/dL (30-55); Mean Corpuscular Volume 92.6 fl (82-101); Mean Platelet Volume 9.4 fL (7.4-10.4); Monocytes # 0.5 10^3/uL (0.2-0.9); Monocytes % 8.5 %; Neutrophils # 4.13 10^3/uL (1.8-7.7); Neutrophils % 69.2 %; Nucleated Red Blood Cells % 0 %; Platelet Count 161 10^3/cmm (157-399); White Blood Count 5.97 10^3/uL (3.29-11.43)
[2023-06-19 15:59] LABS: Alanine Aminotransferase 15 U/L (0-41); Albumin Level 4.3 g/dL (3.5-5.2); Alkaline Phosphatase 98 U/L (40-130); Anion Gap 12.6 (5-19); Aspartate Amino Transferase 16 U/L (0-40); Blood Urea Nitrogen 8 mg/dL (8-23); Calcium 9.2 mg/dL (8.5-10.5); Carbon Dioxide 28 mmol/L (22-29); Chloride 95 mmol/L (98-107); Glomerular Filtration Rate 96.4 mL/min (90-130); Glucose 101 mg/dL (65-115); Osmolality Calculated 270 mOsm/kg (285-295); Potassium 4.6 mmol/L (3.5-5.1); Sodium 131 mmol/L (136-145); Total Bilirubin 0.5 mg/dL (0.15-1.2); Total Protein 7.3 g/dL (6.6-8.7)
== END 2023-07-03 23:59 | disposition home or self-care (01) ==
PROVIDERS: Nurse Practitioner Family; PCP Nurse Practitioner Family; Visit Provider Internal Medicine Hematology & Oncology
DX: C43.9 Malignant melanoma of skin, unspecified (principal); Z79.899 Other long term (current) drug therapy
CPT/HCPCS: 36415; 80053; 85025; 99214

== ENCOUNTER 2023-07-05 13:47 | Outpatient (CLI) | payer MEDICARE, OTHER, SELFPAY ==
--- NOTE | 2023-07-05 15:00 | CTR_ITS ---
PROCEDURE INFORMATION: Exam: CT Chest With Contrast; Diagnostic Exam date and time: 07/05/2023 3:14 PM Age: 67 years old Clinical indication: Condition or disease; Other: Malignant melanoma on lower back dx 3 years ago; Follow-up oncological assessment; Additional info: Surveillance TECHNIQUE: Imaging protocol: Diagnostic computed tomography of the chest with contrast. Radiation optimization: All CT scans at this facility use at least one of these dose optimization techniques: automated exposure control; mA and/or kV adjustment per patient size (includes targeted exams where dose is matched to clinical indication); or iterative reconstruction. Contrast material: OMNI 350; Contrast volume: 95 ml; Contrast route: INTRAVENOUS (IV); COMPARISON: CT chest abdpel w/*[id number] 08/22/2022 11:56 AM RADIATION DOSE METRICS: Total DLP (mGy-cm): 1347.88 FINDINGS: Thyroid: No significant thyroid pathology. No significant thyroid pathology. Lungs: No significant pulmonary pathology. Pleural spaces: No pleural effusion. Heart: Unremarkable. No cardiomegaly. No pericardial effusion. Coronary arteries: Coronary artery calcifications. Mediastinal space: Mural thickening distal thoracic esophagus. Lymph nodes: No enlarged nodes by criteria. Vasculature: Stable 4.1 cm ascending thoracic aortic aneurysm. Diaphragm: Small hiatal hernia. Bones/joints: Old healed bilateral rib fractures again seen. No evidence of bone metastasis or acute fracture. Soft tissues: Unremarkable. PROCEDURE INFORMATION: Exam: CT Abdomen And Pelvis With Contrast Exam date and time: 07/05/2023 3:14 PM Age: 67 years old Clinical indication: Condition or disease; Other: Malignant melanoma on lower back dx 3 years ago; Follow-up oncological assessment; Additional info: Surveillance TECHNIQUE: Imaging protocol: Computed tomography of the abdomen and pelvis with contrast. Radiation optimization: All CT scans at this facility use at least one of these dose optimization techniques: automated exposure control; mA and/or kV adjustment per patient size (includes targeted exams where dose is matched to clinical indication); or iterative reconstruction. Contrast material: OMNI 350; Contrast volume: 95 ml; Contrast route: INTRAVENOUS (IV); COMPARISON: CT chest abdpel w/*[id number] 08/22/2022 11:56 AM RADIATION DOSE METRICS: Total DLP (mGy-cm): 1347.88 FINDINGS: Lungs: Visualized lung bases are free of significant pathology. Diaphragm: Small hiatal hernia. Liver: No significant liver pathology. Gallbladder and bile ducts: No significant gallbladder pathology. Pancreas: No significant pancreatic pathology. Spleen: No significant splenic pathology. Adrenal glands: No significant adrenal pathology. Kidneys and ureters: Subcentimeter renal cortical hypodensities, indeterminate by criteria but statistically most likely representing cysts. Stomach and bowel: No significant pathology. Appendix: No appendiceal pathology evident. Intraperitoneal space: No ascites. Vasculature: No abdominal aortic aneurysm. Lymph nodes: Circumscribed infiltrative central mesenteric fat associated with small lymph nodes in a pattern most consistent with mesenteric panniculitis. No enlarged nodes by criteria. Urinary bladder: Mild bladder wall thickening. Reproductive: Prostate is mildly enlarged. Bones/joints: No bony metastasis evident. Soft tissues: Small fat containing umbilical hernia. Small bilateral fat containing inguinal hernias. CT/CT chest abdpel w/*[id number] IMPRESSION: No evidence of thoracic metastasis. Stable minor findings noted above including 4.1 cm ascending thoracic aortic aneurysm. IMPRESSION: Evidence of abdominopelvic metastasis. Minor findings as above.
[2023-07-05] MEDS: iohexol 350 mg/mL 500 mL Btl (per mL) IV (15:30)
[2023-07-05] MEDS: iohexol 350 mg/mL 500 mL Btl (per mL) PO (15:30)
== END 2023-07-05 13:48 | disposition home or self-care (01) ==
LOC: RAD 13:48
PROVIDERS: PCP Nurse Practitioner Family; Visit Provider Nurse Practitioner Family
DX: C43.59 Malignant melanoma of other part of trunk (principal); I71.21 Aneurysm of the ascending aorta, without rupture
CPT/HCPCS: 71260; 74177; Q9967

== ENCOUNTER → 2023-07-24 11:30 | Outpatient (BNVA) | payer MEDICARE, OTHER, SELFPAY | PROVIDERS: PCP Nurse Practitioner Family; Visit Provider Dermatology | DX: L57.0 Actinic keratosis (principal) | CPT/HCPCS: 96567 ==

== ENCOUNTER → 2023-08-21 10:18 | Outpatient (BNVA) | payer MEDICARE, OTHER, SELFPAY | PROVIDERS: PCP Nurse Practitioner Family; Visit Provider Specialist | DX: M17.0 Bilateral primary osteoarthritis of knee (principal) | CPT/HCPCS: 20610; J1100; J2795; J3301 ==

== ENCOUNTER → 2023-09-12 11:00 | Outpatient (BNVA) | payer MEDICARE, OTHER, SELFPAY | PROVIDERS: PCP Nurse Practitioner Family; Visit Provider Nurse Practitioner Family | DX: L57.0 Actinic keratosis (principal); L82.1 Other seborrheic keratosis; D22.5 Melanocytic nevi of trunk; L81.4 Other melanin hyperpigmentation; L57.8 Other skin changes due to chronic exposure to nonionizing radiation; Z85.820 Personal history of malignant melanoma of skin; Z85.828 Personal history of other malignant neoplasm of skin | CPT/HCPCS: 17004; 99213 ==

== ENCOUNTER 2023-09-16 13:57 | Oncology outpatient (recurring) (ONCR) | payer MEDICARE, OTHER, SELFPAY ==
[2023-09-16 15:49] LABS: Basophils % 0.3 %; Eosinophils % 0.3 %; Hematocrit 41.1 % (37-53); Lymphocytes # 1.3 10^3/uL (0.8-4.8); Lymphocytes % 21.6 %; Mean Corpuscular HGB Conc 35.5 g/dL (30-55); Mean Corpuscular Hemoglobin 33.4 pg (27-33); Mean Corpuscular Volume 94.1 fl (82-101); Mean Platelet Volume 9.7 fL (7.4-10.4); Monocytes # 0.6 10^3/uL (0.2-0.9); Monocytes % 9.8 %; Neutrophils # 4.14 10^3/uL (1.8-7.7); Neutrophils % 67.7 %; Nucleated Red Blood Cells % 0 %; Platelet Count 150 10^3/cmm (157-399); Red Blood Count 4.37 10^6/uL (3.85-5.65); Red Cell Distribution Width 12.1 % (12.1-15.1); White Blood Count 6.12 10^3/uL (3.29-11.43)
[2023-09-16 16:23] LABS: Alanine Aminotransferase 15 U/L (0-41); Albumin Level 4.5 g/dL (3.5-5.2); Alkaline Phosphatase 98 U/L (40-130); Anion Gap 12.6 (5-19); Aspartate Amino Transferase 21 U/L (0-40); Blood Urea Nitrogen 10 mg/dL (8-23); Calcium 9.4 mg/dL (8.5-10.5); Carbon Dioxide 28 mmol/L (22-29); Chloride 97 mmol/L (98-107); Creatinine Clr Calc Pharmacy 114.0802; Globulin 2.8 g/dL (1.3-4.6); Glomerular Filtration Rate 112.5 mL/min (90-130); Glucose 100 mg/dL (65-115); Osmolality Calculated 275 mOsm/kg (285-295); Potassium 4.6 mmol/L (3.5-5.1); Sodium 133 mmol/L (136-145); Total Bilirubin 0.8 mg/dL (0.15-1.2); Total Protein 7.3 g/dL (6.6-8.7)
== END 2023-10-01 23:59 | disposition home or self-care (01) ==
PROVIDERS: Nurse Practitioner Family; PCP Nurse Practitioner Family; Visit Provider Internal Medicine Medical Oncology
DX: C43.9 Malignant melanoma of skin, unspecified (principal); Z79.899 Other long term (current) drug therapy; R35.1 Nocturia
CPT/HCPCS: 36415; 80053; 84153; 85025; 99213

== ENCOUNTER → 2023-09-19 13:17 | Outpatient (BNVA) | payer MEDICARE, OTHER, SELFPAY | PROVIDERS: PCP Nurse Practitioner Family; Visit Provider Internal Medicine | DX: R07.9 Chest pain, unspecified (principal); I71.21 Aneurysm of the ascending aorta, without rupture; I10 Essential (primary) hypertension | CPT/HCPCS: 93005; 99204 ==

== ENCOUNTER 2023-09-30 12:33 | Outpatient (CLI) | payer MEDICARE, SELFPAY ==
--- NOTE | 2023-09-30 13:00 | USCV_ITS ---
Krishna Guevara Age: 67 Gender: M : 1955 Exam Date: 09/30/2023 12:53 Ordering Phys: Jamey Osei M.D ([email or web address]) Technologist: Exam [place] [facility] [place]: hx of aorta anuer BP: 120 / 634 HR: 82 Rhythm: Sinus Technical Quality: Adequate MEASUREMENTS (Male / Female) Normal Values 2D ECHO LV Diastolic Diameter PLAX 5.1 cm 4.2 - 5.9 / 3.9 - 5.3 cm IVS Diastolic Thickness 1.3 cm 0.6 - 1.0 / 0.6 - 0.9 cm IVS Systolic Thickness 1.9 cm LVPW Diastolic Thickness 1.2 cm 0.6 - 1.0 / 0.6 - 0.9 cm LVPW Systolic Thickness 1.5 cm LVOT Diameter 2.0 cm LV Ejection Fraction 2D Teich 61.1 % LV Ejection Fraction MOD 2C 73.7 % LV Ejection Fraction 2C AL 73.2 % LA Diameter 3.7 cm RA Systolic Volume 4C AL 42.9 ml RA Systolic Volume 4C MOD 42.1 ml Aorta at Sinotubular Diameter 3.5 cm IVC Diameter 1.7 cm M-MODE LA Ao Ratio MM 1.2 AV Cusp Separation MM 2.0 cm DOPPLER AV Peak Velocity 111.0 cm/s LVOT Peak Velocity 99.0 cm/s AV Area Cont Eq vti 2.9 cm squared AV Area Cont Eq pk 2.8 cm squared MV Area PHT 3.9 cm squared Mitral E to A Ratio 0.8 TR Peak Velocity 156.0 cm/s TR Peak Gradient 9.7 mmHg TV Peak E Velocity 85.0 cm/s Right Atrial Pressure 3.0 mmHg Pulmonary Artery Systolic Pressu 12.7 mmHg PV Peak Velocity 130.0 cm/s FINDINGS Left Ventricle Left ventricle is normal in size. LV systolic function is normal with EF of 60 to 65%. No regional wall motion abnormalities are seen. Grade 1 diastolic dysfunction Right Ventricle Normal in size and function Right Atrium Normal in size Left Atrium Normal in size Mitral Valve Structurally normal mitral valve. Mild mitral regurgitation. Aortic Valve Structurally normal aortic valve. No significant stenosis or regurgitation. Tricuspid Valve Mild tricuspid regurgitation. Pulmonic Valve Not well visualized Pericardium Normal Aorta Ascending aorta is dilated with maximum diameter of 4.1cm. IVC Appears to be normal CONCLUSIONS LV systolic function is normal with EF of 60-65% Grade 1 disatolic dysfunction Mild mitral regurgitation Mild tricuspid regurgitation Ascending aorta is dilated with diameter of 4.1 cm No comparison studies are available. Jamey Osei MD (Electronically Signed) Final Date: 03 Oct 2023 10:13 S
== END 2023-09-30 12:34 | disposition home or self-care (01) ==
LOC: RAD 12:35
PROVIDERS: PCP Nurse Practitioner Family; Visit Provider Internal Medicine
DX: R07.9 Chest pain, unspecified (principal); R06.02 Shortness of breath; I35.1 Nonrheumatic aortic (valve) insufficiency; I07.1 Rheumatic tricuspid insufficiency; I77.810 Thoracic aortic ectasia
CPT/HCPCS: 93306

== ENCOUNTER → 2023-11-27 11:30 | Outpatient (BNVA) | payer MEDICARE, SELFPAY | PROVIDERS: PCP Nurse Practitioner Family; Visit Provider Dermatology | DX: L57.0 Actinic keratosis (principal) | CPT/HCPCS: 96573 ==

== ENCOUNTER → 2023-11-29 10:43 | Outpatient (BNVA) | payer MEDICARE, SELFPAY | PROVIDERS: PCP Nurse Practitioner Family; Visit Provider Specialist | DX: M17.0 Bilateral primary osteoarthritis of knee (principal) | CPT/HCPCS: 20610; J1100; J2795; J3301 ==

== ENCOUNTER 2024-01-29 13:30 | Oncology outpatient (recurring) (ONCR) | payer MEDICARE, SELFPAY ==
[2024-01-13 10:10] LABS: Basophils # 0.1 10^3/uL (0.0-0.1); Basophils % 0.8 %; Eosinophils # 0.1 10^3/uL (0.0-0.8); Eosinophils % 0.8 %; Hematocrit 39.4 % (37-53); Lymphocytes # 1.3 10^3/uL (0.8-4.8); Lymphocytes % 20.1 %; Mean Corpuscular HGB Conc 35.3 g/dL (30-55); Mean Corpuscular Hemoglobin 33.3 pg (27-33); Mean Corpuscular Volume 94.5 fl (82-101); Mean Platelet Volume 9.1 fL (7.4-10.4); Monocytes # 0.6 10^3/uL (0.2-0.9); Monocytes % 10.3 %; Neutrophils # 4.19 10^3/uL (1.8-7.7); Neutrophils % 67.5 %; Nucleated Red Blood Cells % 0 %; Platelet Count 155 10^3/cmm (157-399); Red Blood Count 4.17 10^6/uL (3.85-5.65); Red Cell Distribution Width 11.9 % (12.1-15.1); White Blood Count 6.21 10^3/uL (3.29-11.43)
[2024-01-13 10:30] LABS: Alanine Aminotransferase 18 U/L (0-41); Albumin Level 4.4 g/dL (3.5-5.2); Alkaline Phosphatase 111 U/L (40-130); Anion Gap 13.6 (5-19); Aspartate Amino Transferase 18 U/L (0-40); Blood Urea Nitrogen 7 mg/dL (8-23); Calcium 8.9 mg/dL (8.5-10.5); Carbon Dioxide 26 mmol/L (22-29); Chloride 97 mmol/L (98-107); Globulin 2.9 g/dL (1.3-4.6); Glomerular Filtration Rate 112.1 mL/min (90-130); Glucose 109 mg/dL (65-115); Osmolality Calculated 273 mOsm/kg (285-295); Potassium 4.6 mmol/L (3.5-5.1); Sodium 132 mmol/L (136-145); Total Bilirubin 0.6 mg/dL (0.15-1.2); Total Protein 7.3 g/dL (6.6-8.7)
[2024-01-29] MEDS: iohexol 350 mg/mL 500 mL Btl (per mL) PO (13:15)
--- NOTE | 2024-01-29 13:30 | CTR_ITS ---
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 Radiation optimization: All CT scans at this facility use at least one of these dose optimization techniques: automated exposure control; mA and/or kV adjustment per patient size (includes targeted exams where dose is matched to clinical indication); or iterative reconstruction. Contrast material: OMNI 350; Contrast volume: 95 ml; Contrast route: INTRAVENOUS (IV); COMPARISON: CT chest abdpel w/*[id number] 07/05/2023 3:14 PM RADIATION DOSE METRICS: Total DLP (mGy-cm): 1218.29 FINDINGS: Lungs: Unremarkable. No consolidation. No masses. Pleural spaces: Unremarkable. No pneumothorax. No pleural effusion. Heart: Unremarkable. No cardiomegaly. No pericardial effusion. Lymph nodes: Unremarkable. No enlarged lymph nodes. Vasculature: There is mild aneurysmal dilatation of the ascending thoracic aorta which measures 4.1 cm in maximal dimension. The descending thoracic aorta is normal in caliber. There is calcified plaque involving the aorta, great vessels and coronary vessels. Bones/joints: Unremarkable. No acute fracture. Soft tissues: Unremarkable. 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 Radiation optimization: All CT scans at this facility use at least one of these dose optimization techniques: automated exposure control; mA and/or kV adjustment per patient size (includes targeted exams where dose is matched to clinical indication); or iterative reconstruction. Contrast material: OMNI 350; Contrast volume: 95 ml; Contrast route: INTRAVENOUS (IV); COMPARISON: CT chest abdpel w/*[id number] 07/05/2023 3:14 PM RADIATION DOSE METRICS: Total DLP (mGy-cm): 1218.29 FINDINGS: Lungs: Lung bases are clear as visualized. Liver: There is mild fatty infiltration of the liver. The liver is otherwise normal. Gallbladder and biliary ducts: Normal. No calcified stones. No ductal dilation. Pancreas: Normal. No ductal dilation. Spleen: Normal. No splenomegaly. Adrenal glands: Normal. No mass. Kidneys and ureters: Tiny benign-appearing renal cysts are noted on the left. Kidneys are otherwise normal. No follow-up necessary. Stomach and bowel: Unremarkable. No obstruction. No mucosal thickening. Appendix: No evidence of appendicitis. Intraperitoneal space: Unremarkable. No free air. No significant fluid collection. Vasculature: There is calcified plaque involving the aorta and its branch vessels. No aortic aneurysm is identified. Lymph nodes: Unremarkable. No enlarged lymph nodes. Urinary bladder: Unremarkable as visualized. Reproductive: Unremarkable as visualized. Bones/joints: Unremarkable. No acute fracture. Soft tissues: Unremarkable. CT/CT chest abdpel w/*[id number] IMPRESSION: 1. Mild aneurysmal dilatation involving the ascending aorta unchanged. 2. No evidence of metastatic disease. IMPRESSION: 1. No acute findings. No evidence of metastatic disease.
[2024-01-29] MEDS: iohexol 350 mg/mL 500 mL Btl (per mL) IV (13:48)
== END 2024-02-01 23:59 | disposition home or self-care (01) ==
LOC: ONCMED 01-31 08:39
PROVIDERS: Nurse Practitioner Family; PCP Nurse Practitioner Family; Visit Provider Nurse Practitioner Family
DX: Z53.9 Procedure and treatment not carried out, unspecified reason (principal); C43.59 Malignant melanoma of other part of trunk
CPT/HCPCS: 11102; 17000; 36415; 71260; 74177; 80053; 85025; 99213; 99214; Q9967

== ENCOUNTER → 2024-03-13 10:21 | Outpatient (BNVA) | payer MEDICARE, SELFPAY | PROVIDERS: PCP Nurse Practitioner Family; Visit Provider Specialist | DX: M17.0 Bilateral primary osteoarthritis of knee (principal); Z71.89 Other specified counseling | CPT/HCPCS: 20610; J1100; J2795; J3301 ==

== ENCOUNTER → 2024-05-04 11:19 | Outpatient (BNVA) | payer MEDICARE, SELFPAY | PROVIDERS: PCP Nurse Practitioner Family; Visit Provider Nurse Practitioner Family | DX: L82.1 Other seborrheic keratosis (principal); D22.4 Melanocytic nevi of scalp and neck; L81.4 Other melanin hyperpigmentation; L57.8 Other skin changes due to chronic exposure to nonionizing radiation; Z85.820 Personal history of malignant melanoma of skin; Z08 Encounter for follow-up examination after completed treatment for malignant neoplasm; Z85.828 Personal history of other malignant neoplasm of skin; D48.5 Neoplasm of uncertain behavior of skin; L57.0 Actinic keratosis | CPT/HCPCS: 11102; 17000; 99214 ==

== ENCOUNTER 2024-05-11 13:58 | Oncology outpatient (recurring) (ONCR) | payer MEDICARE, SELFPAY ==
[2024-05-11 14:30] LABS: Blood Urea Nitrogen 7 mg/dL (8-23); Glomerular Filtration Rate 83.9 mL/min (90-130)
--- NOTE | 2024-05-11 14:30 | CT_ITS ---
WS: [id number] CTA THORACIC AORTA WITH AND WITHOUT CONTRAST HISTORY: aortic aneurysm TECHNIQUE: CTA imaging of the thorax is performed with and without contrast. After noncontrast imagin g is performed, CT angiogram is performed during injection of Omnipaque 350; 100 mL IV.. Sagittal and coronal reconstructions, sagittal and coronal MIP imaging is submitted. All CT scans at [facility] use at least one of these dose optimization techniques: automated exposure control; mA and/or kV adjustment per patient size (includes targeted exams where dose is matched to clinical indication) ; or iterative reconstruction. DLP: 869.31 mGy.cm COMPARISON: 01/29/2024 Good contrast opacification thoracic aorta. There is very minimal ectasia of the ascending aorta with a maximum diameter of 3.8 cm. Transverse diameter of the descending aorta 2.7 cm. Very minimal ectas ia and dilatation. No progression of the mild dilatation. Bovine arch. No dissection or ulcerated rafal que. Normal size pulmonary artery. No filling defects in the proximal pulmonary arteries. Heart size is no rmal with no RIGHT heart strain. No pericardial or pleural effusions. No pulmonary mass or pneumonia. No mediastinal or hilar adenopathy. Small hiatal hernia. Mild tricuspid regurgitation into the hepatic veins. Unremarkable upper abdomina l structures. No destructive bone process. CT/CT angio chest [id number] IMPRESSION: 1. Very mild ectasia and dilatation of the ascending aorta with a maximum diam eter of 3.8 cm. No change since 08/22/2022. 2. Mild atherosclerotic plaque within the thoracic aorta. 3. No enlargement of the heart. 4. Normal pulmonary artery.
[2024-05-11] MEDS: iohexol 350 mg/mL 500 mL Btl (per mL) IV (14:32)
== END 2024-06-02 23:59 | disposition home or self-care (01) ==
LOC: RAD 14:00 → ONCMED 05-12 09:50
PROVIDERS: PCP Nurse Practitioner Family; Visit Provider Internal Medicine
DX: Z53.9 Procedure and treatment not carried out, unspecified reason (principal); C43.9 Malignant melanoma of skin, unspecified; L57.0 Actinic keratosis; L82.1 Other seborrheic keratosis; D22.4 Melanocytic nevi of scalp and neck; L81.4 Other melanin hyperpigmentation; L57.8 Other skin changes due to chronic exposure to nonionizing radiation; Z85.820 Personal history of malignant melanoma of skin; Z85.828 Personal history of other malignant neoplasm of skin; D69.2 Other nonthrombocytopenic purpura; D48.5 Neoplasm of uncertain behavior of skin; Z79.899 Other long term (current) drug therapy; R35.1 Nocturia; I71.21 Aneurysm of the ascending aorta, without rupture
CPT/HCPCS: 71275; 82565; 84520

== ENCOUNTER → 2024-06-11 14:17 | Outpatient (BNVA) | payer MEDICARE, SELFPAY | PROVIDERS: PCP Nurse Practitioner Family; Visit Provider Specialist | DX: M17.11 Unilateral primary osteoarthritis, right knee (principal); M17.0 Bilateral primary osteoarthritis of knee; Z71.89 Other specified counseling | CPT/HCPCS: 20610; J1100; J2795; J3301 ==

== ENCOUNTER → 2024-06-15 14:14 | Outpatient (BNVA) | payer MEDICARE, SELFPAY | PROVIDERS: PCP Nurse Practitioner Family; Visit Provider Dermatology | DX: L82.1 Other seborrheic keratosis (principal); L85.3 Xerosis cutis; Z85.820 Personal history of malignant melanoma of skin; Z08 Encounter for follow-up examination after completed treatment for malignant neoplasm; Z85.828 Personal history of other malignant neoplasm of skin | CPT/HCPCS: 11102; 17000; 17272; 99213 ==

== ENCOUNTER 2024-08-05 12:09 | Oncology outpatient (recurring) (ONCR) | payer MEDICARE, SELFPAY ==
[2024-08-05 12:37] LABS: Basophils % 0.4 %; Eosinophils % 0.6 %; Hematocrit 40.2 % (37-53); Lymphocytes # 1.1 10^3/uL (0.8-4.8); Lymphocytes % 16.9 %; Mean Corpuscular HGB Conc 35.8 g/dL (30-55); Mean Corpuscular Hemoglobin 32.8 pg (27-33); Mean Corpuscular Volume 91.6 fl (82-101); Mean Platelet Volume 9.3 fL (7.4-10.4); Monocytes # 0.7 10^3/uL (0.2-0.9); Monocytes % 10.2 %; Neutrophils # 4.77 10^3/uL (1.8-7.7); Neutrophils % 71.5 %; Nucleated Red Blood Cells % 0 %; Platelet Count 172 10^3/cmm (157-399); Red Blood Count 4.39 10^6/uL (3.85-5.65); Red Cell Distribution Width 11.8 % (12.1-15.1); White Blood Count 6.68 10^3/uL (3.29-11.43)
[2024-08-05 12:59] LABS: Alanine Aminotransferase 14 U/L (0-41); Albumin Level 4.4 g/dL (3.5-5.2); Alkaline Phosphatase 122 U/L (40-130); Anion Gap 13.7 (5-19); Aspartate Amino Transferase 16 U/L (0-40); Blood Urea Nitrogen 9 mg/dL (8-23); Calcium 9.2 mg/dL (8.5-10.5); Carbon Dioxide 27 mmol/L (22-29); Chloride 91 mmol/L (98-107); Globulin 2.5 g/dL (1.3-4.6); Glomerular Filtration Rate 112.1 mL/min (90-130); Glucose 101 mg/dL (65-115); Osmolality Calculated 263 mOsm/kg (285-295); Potassium 4.7 mmol/L (3.5-5.1); Sodium 127 mmol/L (136-145); Total Bilirubin 0.4 mg/dL (0.15-1.2); Total Protein 6.9 g/dL (6.6-8.7)
== END 2024-08-31 23:59 | disposition home or self-care (01) ==
PROVIDERS: Nurse Practitioner Family; PCP Nurse Practitioner Family; Visit Provider Internal Medicine
DX: Z08 Encounter for follow-up examination after completed treatment for malignant neoplasm (principal); Z85.820 Personal history of malignant melanoma of skin; N40.0 Benign prostatic hyperplasia without lower urinary tract symptoms; L82.1 Other seborrheic keratosis; F10.90 Alcohol use, unspecified, uncomplicated; R35.1 Nocturia
CPT/HCPCS: 36415; 80053; 84153; 85025; 99214

== ENCOUNTER → 2024-09-02 11:20 | Outpatient (BNVA) | payer MEDICARE, SELFPAY | PROVIDERS: PCP Nurse Practitioner Family; Visit Provider Nurse Practitioner Family | DX: L57.8 Other skin changes due to chronic exposure to nonionizing radiation (principal); L81.4 Other melanin hyperpigmentation; L82.1 Other seborrheic keratosis; D22.5 Melanocytic nevi of trunk; Z85.820 Personal history of malignant melanoma of skin; Z08 Encounter for follow-up examination after completed treatment for malignant neoplasm; Z85.828 Personal history of other malignant neoplasm of skin; L57.0 Actinic keratosis; B07.8 Other viral warts; L53.8 Other specified erythematous conditions; R20.8 Other disturbances of skin sensation; R58 Hemorrhage, not elsewhere classified | CPT/HCPCS: 17004; 17110; 99213 ==

== ENCOUNTER → 2024-09-11 11:01 | Outpatient (BNVA) | payer MEDICARE, SELFPAY | PROVIDERS: PCP Nurse Practitioner Family; Visit Provider Specialist | DX: M17.11 Unilateral primary osteoarthritis, right knee (principal) | CPT/HCPCS: 20610; J1100; J2795; J3301; J9999 ==

== ENCOUNTER → 2024-09-17 12:55 | Outpatient (BNVA) | payer MEDICARE, SELFPAY | PROVIDERS: PCP Nurse Practitioner Family; Visit Provider Internal Medicine | DX: I71.21 Aneurysm of the ascending aorta, without rupture (principal); I10 Essential (primary) hypertension | CPT/HCPCS: 99214 ==

== ENCOUNTER → 2024-12-18 10:23 | Outpatient (BNVA) | payer MEDICARE, SELFPAY | PROVIDERS: PCP Nurse Practitioner Family; Visit Provider Specialist | DX: M17.0 Bilateral primary osteoarthritis of knee (principal) | CPT/HCPCS: 20610; J1100; J2795; J3301; J9999 ==

== ENCOUNTER → 2025-01-06 14:02 | Outpatient (BNVA) | payer MEDICARE, SELFPAY | PROVIDERS: PCP Nurse Practitioner Family; Visit Provider Nurse Practitioner Family | DX: L57.8 Other skin changes due to chronic exposure to nonionizing radiation (principal); L81.4 Other melanin hyperpigmentation; D22.5 Melanocytic nevi of trunk; Z85.820 Personal history of malignant melanoma of skin; Z08 Encounter for follow-up examination after completed treatment for malignant neoplasm; Z85.828 Personal history of other malignant neoplasm of skin; D48.5 Neoplasm of uncertain behavior of skin; L57.0 Actinic keratosis | CPT/HCPCS: 11102; 17000; 99213 ==

== ENCOUNTER 2025-02-24 13:02 | Oncology outpatient (recurring) (ONCR) | payer MEDICARE, SELFPAY ==
[2025-02-24 13:48] LABS: Hematocrit 41.3 % (37-53); Hemoglobin 14.30 g/dL (11.27-16.99); Mean Corpuscular HGB Conc 34.6 g/dL (30-55); Mean Corpuscular Hemoglobin 32.0 pg (27-33); Mean Corpuscular Volume 92.4 fl (82-101); Nucleated Red Blood Cells % 0 %; Platelet Count 163 10^3/cmm (157-399); Red Blood Count 4.47 10^6/uL (3.85-5.65); White Blood Count 7.01 10^3/uL (3.29-11.43)
[2025-02-24 14:13] LABS: Alanine Aminotransferase 14 U/L (0-41); Albumin Level 4.3 g/dL (3.5-5.2); Alkaline Phosphatase 100 U/L (40-130); Anion Gap 12.2 (5-19); Aspartate Amino Transferase 14 U/L (0-40); Blood Urea Nitrogen 9 mg/dL (8-23); Calcium 9.7 mg/dL (8.5-10.5); Carbon Dioxide 28 mmol/L (22-29); Chloride 100 mmol/L (98-107); Creatinine Clr Calc Pharmacy 109.5012; Globulin 3.0 g/dL (1.3-4.6); Glucose 110 mg/dL (65-115); Osmolality Calculated 281 mOsm/kg (285-295); Potassium 4.2 mmol/L (3.5-5.1); Sodium 136 mmol/L (136-145); Total Protein 7.3 g/dL (6.6-8.7)
== END 2025-03-02 23:59 | disposition home or self-care (01) ==
PROVIDERS: Nurse Practitioner Family; PCP Nurse Practitioner Family; Visit Provider Internal Medicine
DX: Z08 Encounter for follow-up examination after completed treatment for malignant neoplasm (principal); Z85.820 Personal history of malignant melanoma of skin; F10.90 Alcohol use, unspecified, uncomplicated; L98.8 Other specified disorders of the skin and subcutaneous tissue
CPT/HCPCS: 36415; 80053; 85025; 99214

== ENCOUNTER → 2025-03-26 10:31 | Outpatient (BNVA) | payer MEDICARE, SELFPAY | PROVIDERS: PCP Nurse Practitioner Family; Visit Provider Specialist | DX: M17.0 Bilateral primary osteoarthritis of knee (principal) | CPT/HCPCS: 20610; J1100; J2795; J3301; J9999 ==

== ENCOUNTER → 2025-05-21 11:04 | Outpatient (BNVA) | payer MEDICARE, SELFPAY | PROVIDERS: PCP Nurse Practitioner Family; Visit Provider Nurse Practitioner Family | DX: C44.629 Squamous cell carcinoma of skin of left upper limb, including shoulder (principal); L57.8 Other skin changes due to chronic exposure to nonionizing radiation; L81.4 Other melanin hyperpigmentation; D22.5 Melanocytic nevi of trunk; Z85.820 Personal history of malignant melanoma of skin; Z08 Encounter for follow-up examination after completed treatment for malignant neoplasm; Z85.828 Personal history of other malignant neoplasm of skin; L57.0 Actinic keratosis | CPT/HCPCS: 17004; 99213 ==